=== PATIENT | male | born 1955 | race Caucasian/White ===

== ENCOUNTER → 2020-06-20 12:34 | Outpatient (BNVA) | payer MEDICARE, OTHER, SELFPAY | PROVIDERS: PCP Internal Medicine; Visit Provider Orthopaedic Surgery | DX: Z20.828 Contact with and (suspected) exposure to other viral communicable diseases (principal); Z01.812 Encounter for preprocedural laboratory examination | CPT/HCPCS: 87635 ==

== ENCOUNTER 2020-06-25 13:18 | Observation (INO) | payer MEDICARE, OTHER, SELFPAY ==
[2020-06-15 08:31] VITALS: BMI 33.0
--- NOTE | 2020-06-15 08:55 | ECG_ITS ---
[facility] Test Date: 2020-06-15 Pat Name: Tiago Petersen Department: Room: Gender: Male Test Director: : 1955 Requested By: Chanell Bernardo Order Number: [id number] Jamie MD: PARVEEN TORRES Measurements Intervals [place] Rate: 47 P: 66 OK: 226 QRS: 16 QRSD: 116 T: 28 QT: 430 QTc: 380 Interpretive Statements SINUS BRADYCARDIA WITH FIRST DEGREE AV BLOCK WITH OCCASIONAL VENTRICULAR PREMATURE COMPLEXES INCOMPLETE RIGHT BUNDLE BRANCH BLOCK [90+ ms QRS DURATION, TERMINAL R IN V1/V2, 40+ ms S IN I/aVL/V4/V5/V6] No previous ECG available for comparison Electronically Signed On 06-15-2020 19:32:58 SALES DEPARTMENT CLERK by PARVEEN TORRES [id number]
--- NOTE | 2020-06-15 08:56 | ANES.PREANE2 ---
Pre-Anesthetic Assessment Pre-Anesthetic Assessment: Height/Weight: Height 1.78 m Weight 104.326 kg Preop Diagnosis: Arthritis Proposed Procedure: Operation Date: 06/25/20 09:40 Proposed Procedures p Total Knee Arthroplasty 01506 M17.11(Left) - Naveen Brown MD Familial anesthetic complications: NOne Social: Social History: No alcohol and No tobacco Exam: Pre-Anes Outpt Exam: alert, oriented x 3, clear to auscultation bilaterally and regular rate & rhythm Airway: Cervical ROM: WNL MP: 2 Dentition: False Pulmonary: Pulmonary: Sleep apnea (cpap) : Comments: can't take ibuprofen or aleve b/c affects kidneys. uroSepsis in 2014 caused kidneys damage Musc/skel: Musc/skel: OA/DJD Anesthetic Plan: ASA status: 3 Anesthesia: Regional (specify below) (spinal) Risk of > 500 ml blood loss (7ml/kg in children): No PFSH Anesthesia PFSH: Family History (Updated 06/15/20 @ 08:38 by Nely Mae RN) Brother Heart attack Stroke Social History Smoking and tobacco status: former smoker Alcohol intake: never Data Anesthesia Cardiac Studies: No Data to Display
[2020-06-15 09:18] LABS: Basophils # 0.1 10^3/uL (0.0-0.1); Eosinophils # 0.1 10^3/uL (0.0-0.8); Eosinophils % 1.9 %; Hematocrit 51.1 % (42.0-52.0); Hemoglobin 16.4 g/dL (11.7-16.6); Lymphocytes # 1.6 10^3/uL (0.8-4.8); Lymphocytes % 32.8 %; Mean Corpuscular HGB Conc 32.1 g/dL (30.0-36.0); Mean Corpuscular Hemoglobin 29.9 pg (28.0-34.0); Mean Corpuscular Volume 93.1 fL (80-94); Mean Platelet Volume 8.9 fL (7.4-10.4); Monocytes # 0.5 10^3/uL (0.2-0.9); Monocytes % 10.5 %; Neutrophils # 2.56 10^3/uL (1.8-7.7); Neutrophils % 53.6 %; Nucleated Red Blood Cells % 0 %; Platelet Count 238 10^3/cmm (130-400); Red Blood Count 5.49 10^6/uL (4.1-5.3); Red Cell Distribution Width 13.6 % (12.1-15.1); White Blood Count 4.8 10^3/uL (4.0-10.0)
[2020-06-15 09:36] LABS: Anion Gap 15.6 (5-19); Blood Urea Nitrogen 17 mg/dL (8-23); Calcium 9.2 mg/dL (8.5-10.5); Carbon Dioxide 23 mmol/L (22-29); Chloride 105 mmol/L (98-107); Glucose 121 mg/dL (65-115); Osmolality Calculated 291 mOsm/kg (285-295); Potassium 4.6 mmol/L (3.5-5.1); Sodium 139 mmol/L (136-145)
[2020-06-25] VITALS (42 sets, daily range): BP systolic 94–134; BP diastolic 23–75; PULSE 31–69; RESP 13–33; TEMP 36.3–36.8; O2SAT 90–98
[2020-06-25] MEDS: gabapentin 300 mg Capsule PO ×2 (06:10→17:17)
[2020-06-25] MEDS: acetaminophen 500 mg Tablet 1000 MG PO ×3 (06:10→22:15)
[2020-06-25] MEDS: CELEcoxib 200 mg Capsule 400 MG PO (06:10)
[2020-06-25] MEDS: sodium chloride 0.9% 1,000 ML 30 ML IV (06:13)
[2020-06-25] MEDS: midazolam 1 mg/mL INJ 5 ML 5 MG IVP (06:31)
--- NOTE | 2020-06-25 06:38 | P.ANESUD_ITS ---
Pre-Anesthetic Update Pre-Anesthetic Assessment: Date of Surgery/Procedure: 06/25/20 Preop Val gnosis: Osteoarthritis left knee Proposed Procedure: Operation Date: 06/25/20 07:00 Proposed Procedures p Total Knee Arthroplasty 01175 M17.11(Left) - Naveen Brown MD Any changes to Pre-Anesthetic Assessment?: No Last Intake: Intake Last Liquid Date 06/24/20 Last Liquid Time 19:00 Last Solid Date 06/24/20 Last Solid Time 19:00 Vitals: Temperature 97.3 F L 06/25/20 05:39 Temperature Source Temporal Artery S can 06/25/20 05:39 Pulse Rate 45 L 06/25/20 05:39 Pulse Rhythm 06/25/20 05:39 Pulse Strength 3+ Normal 06/25/20 05:39 Respiratory Rate 18 06/25/20 05:39 Blood Pressure 119/71 06/25/20 05:39 Blood Pressure Kathrine n 87 06/25/20 05:39 Pulse Oximetry 95 06/25/20 05:39 Oxygen Delivery Me thod 06/25/20 05:39 Exam: Pre-Anes Outpt Exam: alert, oriented x 3, clear to auscultation bilaterally and regular rate & rhythm Cardiac Studies: No Data to Display
--- NOTE | 2020-06-25 06:39 | ANES.PROC ---
Anesthesia Procedures Procedure/Date: 06/25/20 Nerve Block ^: Nerve Block 1: Main Anesthesia: general anesthesia Time Out Performed: Yes Consent: requested by attending/covering physician, from patient, from other, risks and benefits reviewed, patient agrees to proceed and emergency procedure Nerve block location: adductor canal (L) Anesthesia monitors applied: pulse oximetry, EKG, BP cuff and oxygen Nerve block position: supine Anesthetic Used: ropivicaine 0.5% (30) and with decadron (4 mg) Amount of anesthesia used (mL): 30 Ultrasound used to: recognize landmarks and visualize and ID femerol nerve Nerve Stimulator Used?: No Interscalene/Femoral BLK: 4 stimuplex 21 g needle used for position and inplane approach, other needle, visualize local anesthetic spread and no vascular puncture identified Injection: neg aspiration of heme Patient Tolerated Procedure: well and no complications Complications: none
[2020-06-25] MEDS: oxyCODONE 20 mg ER (12 HR) Tablet PO (06:42)
--- NOTE | 2020-06-25 07:03 | W.PM.OPSFHP ---
Same Day Surgery H&P Indication for Procedure/HPI DATE OF PROCEDURE: June 25, 2020 CHIEF COMPLAINT/INDICATIONFOR SURGICAL PROCEDURE: Osteoarthrits left knee with pain unresponsive to conservative measures. Here for left total knee arthroplasty PREOP DIAGNOSIS: Osteoarthritis left knee PLANNED PROCEDRUE: Operation Date: 06/25/20 07:00 Proposed Procedures p Total Knee Arthroplasty 30178 M17.11(Left) - Naveen Brown MD Medications/Allergies* Home Medications Medication Instructions Recorded Confirmed Type tamsulosin 0.4 mg capsule 0.4 mg PO DAILY 01/06/20 06/25/20 History acetaminophen [Tylenol Arthritis 650 mg PO Q12H PRN 06/15/20 06/25/20 History Pain] hydrocodone-acetaminophen 1 - 2 tab PO Q4-5H PRN 06/15/20 06/25/20 History Allergies/Adverse Reactions Allergy/AdvReac Type Severity Reaction Status Date / Time No Known Allergies Allergy Verified 06/15/20 08:27 Current Medications: Generic Name Dose Route Start Last Admin Trade Name Freq PRN Reason Stop Dose Admin Sodium Chloride 1,000 mls @ 30 mls/hr 06/25/20 05:45 06/25/20 06:13 Sodium Chloride 0.9% IV 06/26/20 05:44 30 mls/hr .Q24H ZOILA Administration Pertinent History/Comorbid Conditions* Family History Heart attack Brother Stroke Brother Social History Smoking and tobacco status: former smoker Alcohol intake: never Pertinent Exam Findings alert, oriented x 3, clear to auscultation bilaterally, regular rate & rhythm, operative site marked and procedure specific exam findings (Unchanged from clinic note) Recommendations Surgery/Procedure today Coding Level of Care Code Acute Senior Technical Analyst for Domonique Eubanks
--- NOTE | 2020-06-25 08:03 | SUR.OPER ---
0800 - Pt's Ashley notified of surgery start via her cell phone.
[2020-06-25] MEDS: ketorolac 30 mg/mL INJ XX (08:40)
[2020-06-25] MEDS: EPINEPHrine 1 mg/mL INJ XX (08:40)
[2020-06-25] MEDS: tranexamic acid 1,000 mg/10mL SDV 1000 MG IRRIGATION (08:42)
--- NOTE | 2020-06-25 09:16 | W.PM.OPSUD ---
Surgery/Procedure H&P Update DATE OF PROCEDURE: June 25, 2020 DATE H&P PERFORMED: 04/03/20 PREOP DIAGNOSIS: Osteoarthritis left knee PLANNED PROCEDURE: Operation Date: 06/25/20 07:00 Proposed Procedures p Total Knee Arthroplasty 81036 M17.11(Left) - Naveen Brown MD
--- NOTE | 2020-06-25 09:18 | P.OP_ITS ---
Operative Report Date of procedure: June 25, 2020 Pre-op Diagnosis: Osteoarthritis left knee Post-op diagnosis: same Post-op Findings: Same Procedure Done: Left total knee arthroplasty Implants: Dalton total knee arthroplasty components were used includin) Size 4 triathalon cruciate retaining femoral component 2) Size 5 Tritanium tibial component 3) 32 mm /10 mm thickness Tritanium asymetric patella 4) Size 5/9 mm thickness CR tibial bearing insert Pathology: none sent Surgeon: Naveen Brown Anesthesia: Nerve Block (Spinal, abductor canal block) Estimated blood loss (mL): 100 Complications: None Findings: The patient had 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 Patient was given 1 g of tranexamic acid . The above anesthesia provided by the anesthesia service. A timeout was performed. The patient was prepped and draped in the usual fashion with the lower extremity exposed. A anterior incision was made, midline, from a point proximal to the patella to the distal tibial tubercle. The knee was entered through a medial parapatellar approach. The patella could be displaced laterally and the knee flexed. The patellar fat pad was resected to provide better visibility. Retractors were placed medially and laterally adjacent to the tibial plateau. The femoral canal was drilled in line with the longitudinal axis of the femur. Intramedullary femoral guide for used to make a distal femoral cut in 5 degrees of valgus, resecting 8 mm from the more prominent condyle. Next the extra medullary tibial guide was placed in alignment with the longitudinal axis of the tibia. The cutting guides were set to remove just over 9 mm from the high tibial plateau. The proximal tibia was then cut. The femoral measuring guide was then placed over the distal femur. Rotation was verified checking the re lationship of the guide to the condyle and the trochlear groove. The femur was measured and cut for the desired femoral component. The desired tibial baseplate was then chosen. A trial reduction with the femur tibial baseplate and polyethylene was done, assuring that the knee was stable throughout full motion. Ligament balancing involve nothing more than a release of the deep medial collateral ligament and removal of medial osteophytes from the tibia.The tibia was prepared for the tibial baseplate. Patellar thickness was then measured. The patella was cut removing articular cartilage and prepared for appropriate size patellar button. All surfaces were cleaned with pulsatile lavage. The femur tibia and patella were then press-fit into place. The posterior capsule and collateral ligaments were then injected with a solution of 100 mL of 0.2% ropivacaine, 1 mL of a 1:1000 epinephrine solution, and 30 mg of Toradol. Final polyethylene component was then snapped into place into the tibia. 2 grams of tranexamic acid were applied to the wound. The tourniquet was deflated. The tranxanemic acid was left contact with the knee for 5 minutes before the knee was irrigated with saline. The extensor retinaculum was closed with 1 Ethibond. The subcutaneous tissues were closed with 2-0 Vicryl and the skin was closed with skin tatyana. A compressive dressing was applied. The patient was taken to recovery room in stable condition.
--- NOTE | 2020-06-25 09:33 | XR_ITS ---
WS: [id number] Exam: XR knee LT 1-2V [id number] Date/Time of Exam: 06/25/2020 9:38 AM Reason For Exam: Left total knee arthroplasty Comparison 04/29/2019. A total knee prosthesis has been placed and appears to be in excellent position. Postoperative change s in the adjacent soft tissues. Anterior surgical skin clips are noted. XR/XR knee LT 1-2V [id number] IMPRESSION: 1. Total knee replacement appearing to be in excellent position.
--- NOTE | 2020-06-25 09:37 | SUR.PHASEI ---
PT AWAKE ALERT FOLLOWS COMMANDS, GOOD RESP EFFOR NOTED PT NOW ON2LNC TO KEEP SATS OVER 94% PT SLEEPS IF NOT DISTURBED X RAY HERE, DRESSING LT KNEE D/I FIRST ICE TO SITE, DISTAL FOOT PINK WARM WITH STRONG REGULAR PULSE NOTED SPINAL ANESTHESIA LEVEL AT T -10 LEVEL PT PT VOICED NORMAL SENSATION. HOB AT 10 DEGREES.
--- NOTE | 2020-06-25 11:03 | SUR.PHASEI ---
1045 PT AWAKE ALERT PT HAS EPISODES OF SLOW SB NO ECTOPY NOTED PT HAD LEFT KNEE DRESSING D/I PT TALKATIVE SPINAL ANESTHESIA AT T-10 ON PACU ADMIT NOW T 12 PT ABLE TO MOVE BILAT FEET AND KNEES, PT DENIES PAIN TAKING SIPS OF SODA, PT NOW IN HOLDING , WAITING FOR BED. VSS.
--- NOTE | 2020-06-25 11:05 | SUR.PHASEI ---
PT AWAKE ALERT MOVES BILAT LEGS AND FEET TO COMMAND, PT DENIES PAIN HOB AT 20 DEGREES PT SLEEPS IF NOT DISTURBED ON 2LNC SATS 93-94% DRESSING TO LT KNEE D/I DISTAL FOOT PINK WARM WITH STRONG REGULAR PULSE NOTED PT HR STILL FLUCTUATES FROM 35-47
--- NOTE | 2020-06-25 13:12 | ECG_ITS ---
[facility] Test Date: 2020-06-25 Pat Name: Tiago Petersen Department: Room: 275 Gender: Male Sandwich Maker: : 1955 Requested By: Chanell Bernardo Order Number: [id number] Jamie MD: Jorge Paredes M.D. Measurements Intervals [place] Rate: 58 P: 87 WI: 258 QRS: 38 QRSD: 122 T: 37 QT: 448 QTc: 440 Interpretive Statements SINUS BRADYCARDIA WITH MARKED SINUS ARRHYTHMIA WITH FIRST DEGREE AV BLOCK RIGHT BUNDLE BRANCH BLOCK [120+ ms QRS DURATION, UPRIGHT V1, 40+ ms S IN I/aVL/V4/V5/V6] Compared to ECG 06/15/2020 09:03:19 Right bundle-branch block now present Incomplete right bundle-branch block no longer present Electronically Signed On 06-25-2020 18:26:31 PROCUREMENT DIRECTOR by Jorge Paredes M.D. [email or web address] [email or web address]/[id number] f
--- NOTE | 2020-06-25 13:17 | SUR.PHASEI ---
EKG DONE AT BEDSIDE PT AWAKE ALERT TALKING ON PHONE HR REMAINS 32-50 SB WITH OCC EARLY BEATS NO ECTOPY NOTED.
[2020-06-25] MEDS: oxyCODONE 5 mg IR Tab/Cap PO ×2 (13:26→17:44)
--- NOTE | 2020-06-25 13:41 | PC.NURSE ---
Received patient from surgery, resting in bed, denies pain, dressing to left leg clean dry and intact. vitals stable as charted.
--- NOTE | 2020-06-25 14:10 | ANE.PACU2 ---
Inpatient post-anesthesia follow up: Airway intact: Yes Vital signs: Temperature 97.8 F Pulse Rate 47 Respiratory Rate 18 Blood Pressure 116/54 Pulse Oximetry 97 Oxygen Delivery Me thod Nasal Cannula Oxygen Flow Rate 2 Fraction of Inspir ed Oxygen Hydration adequate: Yes Nausea and vomiting: No Pain level: 2 Mental status: Baseline Additional Comments: patient's heart rate continues to be slow and irregular with some pauses, but with P waves. Remains asymptomatic. Spinal worn off, patient able to move both lower extremities.
[2020-06-25] MEDS: chlorhexidine gluconate 0.12% Btl 473 mL 30 ML MUCOUS MEM ×3 (14:25→22:14)
[2020-06-25] MEDS: sodium chloride 0.9% 1,000 ML 100 ML IV (14:26)
--- NOTE | 2020-06-25 14:33 | PC.NURSE ---
Physical therapy in room with patient.
--- NOTE | 2020-06-25 15:36 | PM.PN ---
Subjective Subjective: Interval history: Feels good. Up ambulting with therapy earlier Vitals/I&O/Wt Last Vital Signs Temp 98.2 F 06/25/20 14:16 Pulse 56 L 06/25/20 14:16 Resp 15 06/25/20 14:16 BP 134/75 06/25/20 14:16 Pulse Ox 94 06/25/20 14:16 06/25/20 06/25/20 06/25/20 06:59 14:59 22:59 Intake Total 760 / 760 Output Total 150 / 150 Balance 610 / 610 Physical Exam Narrative: EXAM NARRATIVE: Performs straight leg raise Dressing clean and dry Urinary Catheter Management^: Phillips: Cath Placed During This Visit: yes Urinary Catheter Date of Insertion: 06/25/20 Urinary Catheter Time of Insertion: 07:35 Data : 06/15/20 09:00 06/15/20 09:00 A&P Assessment and plan (1) Osteoarthritis of left knee: Status: Resolved (2) Status post left knee replacement: Doing well. Anticipate discharge in am. Status: Acute (3) AV block, 1st degree: Patient asymptomatic. Will ask for hospitalists input Status: Acute Attestations Medical Necessity Statement*: Outpatient status. Anticpate discharge tomorow. Coding Level of Care Code Acute Financial Analyst for Domonique Fwfreeman Diagnoses Osteoarthritis of left knee M17.12 Status post left knee replacement Z96.652 AV block, 1st degree I44.0
--- NOTE | 2020-06-25 15:58 | USCV_ITS ---
Tiago Petersen Age: 64 Gender: M : 1955 Exam Date: 06/25/2020 15:56 Ordering Phys: Champ Burrows MD Technologist: Konrad Cowan Exam Location: [facility] [place] Indication: sinus bradicardia BP: 132 / 74 HR: 45 Rhythm: Sinus Technical Quality: Adequate MEASUREMENTS (Male / Female) Normal Values 2D ECHO LV Diastolic Diameter PLAX 3.7 cm 4.2 - 5.9 / 3.9 - 5.3 cm LV Systolic Diameter PLAX 2.3 cm IVS Diastolic Thickness 1.2 cm 0.6 - 1.0 / 0.6 - 0.9 cm IVS Systolic Thickness 1.6 cm LVPW Diastolic Thickness 1.3 cm 0.6 - 1.0 / 0.6 - 0.9 cm LVPW Systolic Thickness 1.4 cm LVOT Diameter 2.0 cm LV Ejection Fraction 2D Teich 67.6 % LV Ejection Fraction MOD 2C 58.5 % LV Ejection Fraction 2C AL 58.8 % LA Diameter 4.4 cm LA Width 4.5 cm LA Height 5.1 cm RA Width 4.3 cm RA Height 4.8 cm Aorta at Sinotubular Diameter 2.8 cm M-MODE LV Diastolic Diameter MM 5.2 cm 4.2 - 5.9 / 3.9 - 5.3 cm LV Systolic Diameter MM 2.8 cm LV Ejection Fraction MM Teich 76.3 % IVS Diastolic Thickness MM 1.0 cm 0.6 - 1.0 / 0.6 - 0.9 cm IVS Systolic Thickness MM 1.4 cm LVPW Diastolic Thickness MM 1.2 cm 0.6 - 1.0 / 0.6 - 0.9 cm LVPW Systolic Thickness MM 1.8 cm RV Diastolic Diameter MM 1.7 cm Aortic Annulus Diameter 4.3 cm LA Ao Ratio MM 1.2 MV E Point Septal Separation 0.9 cm DOPPLER AV Peak Velocity 199.0 cm/s LVOT Peak Velocity 111.0 cm/s AV Area Cont Eq vti 1.6 cm squared AV Area Cont Eq pk 1.8 cm squared MV Area PHT 5.0 cm squared Mitral E to A Ratio 1.0 MV E' Velocity 43.0 cm/s Mitral E to MV E' Ratio 6.6 Mitral E to LV E' Lateral Ratio 6.3 Mitral E to LV E' Septal Ratio 7.0 TR Peak Velocity 192.0 cm/s TR Peak Gradient 14.7 mmHg TV Peak E Velocity 113.0 cm/s Right Atrial Pressure 3.0 mmHg Pulmonary Artery Systolic Pressu 17.7 mmHg FINDINGS Left Ventricle Normal left ventricular size, systolic function and wall thickness, with no regional wall motion abnormalities. Left ventricular ejection fraction is estimated at 70 %. Normal diastolic function. Right Ventricle Normal right ventricular size and systolic function, RVSP 17.7 mmHg. Right Atrium Normal right atrial size. Left Atrium Normal left atrial size. Mitral Valve Structurally normal mitral valve. No mitral valve stenosis. No mitral valve regurgitation. Aortic Valve Aortic valve not well visualized. No aortic valve stenosis. No aortic valve regurgitation. Tricuspid Valve Tricuspid valve not well visualized. Pulmonic Valve Pulmonic valve not well visualized. Pericardium No pericardial effusion. Aorta Normal-sized aortic root. CONCLUSIONS 1. This is a technically difficult study. 2. Normal left ventricular size, systolic function and wall thickness, with no regional wall motion abnormalities. Left ventricular ejection fraction is estimated at 70 %. Normal diastolic function. 3. Normal pulmonary artery pressure. 4. No significant valvular abnormality. 5. Normal-sized aortic root. 6. No prior similar studies to compare. Carmen Lopez MD (Electronically Signed) Final Date: 25 June 2020 19:10 S
--- NOTE | 2020-06-25 15:58 | PM.CONSULT ---
Providers/Reason For Consult Consulting Physican/Specialty*: Orthopedic Reason for Consult*: Sinus bradycardia Attending Physician: Naveen Brown MD Primary Care Provider: Tiago Sung DO History of Present Illness History of Present Illness Tiago Petersen is a 64 year old male with a past medical history of diverticulitis, BPH, who presents to [facility] status post left knee replacement by Dr. Brown. Hospitalist team was consulted for concerns for sinus bradycardia. Patient had episodes of sinus bradycardia in the operating room, and sinus bradycardia postop. Patient tells me that he does not have a cardiac history, no history of chest pain, no history of shortness of breath, no history of syncope, no history of CHF, no history of stenting, no history of open heart surgery, no history of COPD, no history of strokes, he quit smoking more than 6 years ago. Patient states that he is retired, but he is very active with his dogs, denies any chest pain with exertion, denies any shortness of breath with exertion, denies any lightheadedness or dizziness with exertion, denies any presyncope, denies any syncope. He tells me that when he had his cataract surgery, he also had issues with low heart rate. Currently denies chest pain, shortness of breath, lightheadedness, dizziness, presyncope, syncope. Does have a family history of CAD, his brother from CAD in his 50s. Denies alcohol use. Denies drug use. Review of Systems Const: Denies: fever(s), chills, fatigue or malaise Eyes: Denies: change in vision or blurry vision ENMT: Denies: nasal congestion Card: Denies: chest pain, palpitations, irregular heart rhythm, edema, syncope or pre-syncope Resp: Denies: dyspnea, productive cough, non-productive cough or wheezing GI: Denies: abdominal pain, nausea, vomiting, hematemesis, diarrhea, constipation, hematochezia or melena : Denies: flank pain, difficulty urinating, dysuria or urinary frequency Musc: Denies: neck pain or back pain Skin/Breast: Denies: rash Neuro: Denies: headache(s), dizziness or vertigo Psych: Denies: anxiety or depression Endo: Denies: polyuria or polydipsia Meds/Allergies Home Medications and Allergies Home Medications Medication Instructions Recorded Confirmed Last Taken Type tamsulosin 0.4 mg capsule 0.4 mg PO DAILY 01/06/20 06/25/20 06/25/20 History acetaminophen [Tylenol Arthritis 650 mg PO Q12H PRN 06/15/20 06/25/20 06/25/20 History Pain] hydrocodone-acetaminophen 1 - 2 tab PO Q4-5H PRN 06/15/20 06/25/20 06/25/20 History Allergies Allergy/AdvReac Type Severity Reaction Status Date / Time No Known Allergies Allergy Verified 06/15/20 08:27 Current Medications Current Medications Generic Name Dose Route Start Last Admin Trade Name Freq PRN Reason Stop Dose Admin Acetaminophen 1,000 mg 06/25/20 14:00 06/25/20 14:24 Acetaminophen 500 Mg Tablet PO 1,000 mg Q8H ZOILA Administration Chlorhexidine Gluconate 30 ml 06/25/20 13:41 06/25/20 14:25 Chlorhexidine Gluconate 0.12% Btl 473 Ml MUCOUS MEM 30 ml QID ZOILA Administration Sodium Chloride 1,000 mls @ 100 mls/hr 06/25/20 13:41 06/25/20 14:26 Sodium Chloride 0.9% IV 100 mls/hr .Q10H ZOILA Administration Cefazolin Sodium 2,000 mg/ 70 mls @ 100 mls/hr 06/25/20 15:00 06/25/20 15:44 Sodium Chloride IV 06/26/20 07:41 100 mls/hr Q8H ZOILA Administration PFSH Acute PFSH: Medical History (Updated 06/25/20 @ 16:03 by Champ Burrows MD) BPH (benign prostatic hyperplasia) Diverticulitis Surgical History (Updated 06/25/20 @ 16:02 by Champ Burrows MD) History of bilateral cataract extraction History of carpal tunnel surgery Family History (Updated 06/15/20 @ 08:38 by Nely Mae RN) Brother Heart attack Stroke Mother Liver cancer Social History Smoking and tobacco status: former smoker Alcohol intake: never Vitals/I&O/Wt Last Vital Signs Temp 97.5 F L 06/25/20 15:30 Pulse 58 L 06/25/20 15:46 Resp 16 06/25/20 15:35 BP 117/72 06/25/20 15:30 Pulse Ox 97 06/25/20 15:46 06/25/20 06/25/20 06/25/20 06:59 14:59 22:59 Intake Total 760 / 760 Output Total 150 / 150 Balance 610 / 610 Physical Exam Const: COMMON NORMALS: no acute distress and patient oriented x3 GENERAL APPEARANCE: cooperative and comfortable HENMT: COMMON NORMALS: normocephalic HEAD & SCALP: normocephalic Eye: COMMON NORMALS: Equal, round and reactive pupils present and EOMs intact bilaterally GENERAL EYE: appearance normal, both eyes and all related structures PUPIL: Yes Equal, round and reactive pupils present Neck/C-Spine: COMMON NORMALS: full ROM, no lymphadenopathy, no JVD and Thyroid normal THYROID: Thyroid normal Lymph: LYMPHATIC: no lymphadenopathy noted Resp: COMMON NORMALS: normal respiratory effort, No retractions, No use of accessory muscles and clear to auscultation bilaterally AUSCULTATION: clear to auscultation bilaterally Cardio: COMMON NORMALS: no JVD, regular rhythm, S1 normal heart sound present, S2 normal heart sound present, No gallops present (Cardio), No clicks present (Cardio) and No murmurs present (Cardio) RATE: bradycardic RHYTHM: regular rhythm HEART SOUNDS: S1 normal heart sound present and S2 normal heart sound present GI: COMMON NORMALS: Normal to inspection, nondistended, normoactive bowel sounds present, Soft to palpation, non-tender and No hepatosplenomegaly present PALPATION: Yes Soft to palpation and Yes No hepatosplenomegaly present Extremity: COMMON NORMALS: normal to inspection, full ROM and no pedal edema Neuro: COMMON NORMALS: patient oriented x3, CN's II-XII intact bilaterally, moves all extremities and no focal motor deficits Psych: COMMON NORMALS: mental status grossly normal, Normal thought process present and cooperative THOUGHT PROCESS: Normal thought process present Urinary Catheter Management^: Phillips: Cath Placed During This Visit: yes Urinary Catheter Date of Insertion: 06/25/20 Urinary Catheter Time of Insertion: 07:35 A&P Assessment and plan (1) Sinus bradycardia: -Preop EKG shows sinus bradycardia, with first-degree AV block, some incomplete RBBB, rate 47, UT interval 227 ms, QRS 116 ms, QTC 380 ms -Postoperative EKG shows sinus bradycardia, first-degree AV block, incomplete RBBB, heart rate 50, UT interval 258 ms, QRS 122 ms, QTC 440 ms -Review of patient's previous hospitalizations, show that during his hospitalization for perforated diverticulitis, his telemetry monitoring did show sinus bradycardia, with first-degree AV block, this was back in 2015 -He tells me that he has a history of sinus bradycardia after anesthesia for his cataract surgery -No cardiac history, no history of syncope, no chest pain with exertion, no syncope with exertion -No history of stress testing, no history of chest pain -Currently asymptomatic Plan: -Continue telemetry monitoring -Avoid marion blocking agents -He will likely develop more sinus bradycardia during sleep, continue to monitor -We will order cardiac echocardiogram -Currently asymptomatic, would avoid treating -If he becomes symptomatic, will give atropine 0.5 mg every 5 minutes -patient should follow-up with cardiology as outpatient -I do not feel that he would benefit from Holter monitor, as he is not symptomatic he does perform become symptomatic we can consider this Status: Acute (2) AV block, 1st degree: Status: Acute (3) Status post left knee replacement: Status: Acute (4) Osteoarthritis of left knee: Status: Resolved Coding Level of Care Code Acute Cloth Napping Supervisor for lexis Eubanks Diagnoses Sinus bradycardia R00.1 AV block, 1st degree I44.0 Status post left knee replacement Z96.652 Osteoarthritis of left knee M17.12
[2020-06-25] MEDS: sennosides-docusate Tablet 2 TAB PO (17:17)
[2020-06-25] MEDS: CELEcoxib 200 mg Capsule PO (17:17)
[2020-06-25] MEDS: mupirocin oint 22 gm 1 APPLIC NASAL (17:17)
[2020-06-26] MEDS: sodium chloride 0.9% 1,000 ML 100 ML IV (01:42)
[2020-06-26 05:02] LABS: Hemoglobin 13.6 g/dL (11.7-16.6)
[2020-06-26 05:34] LABS: Blood Urea Nitrogen 30 mg/dL (8-23); Calcium 8.5 mg/dL (8.5-10.5); Carbon Dioxide 21 mmol/L (22-29); Chloride 109 mmol/L (98-107); Glomerular Filtration Rate 55.4 mL/min (90-130); Glucose 136 mg/dL (65-115); Osmolality Calculated 298 mOsm/kg (285-295); Sodium 140 mmol/L (136-145)
[2020-06-26 05:42] LABS: Anion Gap 14.8 (5-19); Potassium 4.8 mmol/L (3.5-5.1)
[2020-06-26] MEDS: acetaminophen 500 mg Tablet 1000 MG PO (06:28)
[2020-06-26] MEDS: CELEcoxib 200 mg Capsule PO (06:29)
[2020-06-26 07:11] VITALS: BP 115/62; PULSE 60; RESP 16; TEMP 36.6; O2SAT 92
--- NOTE | 2020-06-26 09:15 | P.PN_ITS ---
Subjective Subjective: Interval history: Patient was examined this morning, he had uneventful night, yesterday afternoon his heart rates were in the low 30s, overnight his heart rates were in the 40s, this morning he sitting up in bed, heart rates in the 50s to 60s, he was asymptomatic, no chest pain, no presyncope, no lightheaded, dizziness, no nausea, vomiting, he has no particular complaints, wondering when he can go home Vitals/I&O/Wt Last Vital Signs Temp 97.8 F 06/26/20 07:11 Pulse 60 06/26/20 07:11 Resp 16 06/26/20 07:11 BP 115/62 06/26/20 07:11 Pulse Ox 92 06/26/20 07:11 06/25/20 06/26/20 06/26/20 22:59 06:59 14:59 Intake Total 620 / 1380 1000 / 2380 240 / 240 Output Total 275 / 425 250 / 675 Balance 345 / 955 750 / 1705 240 / 240 Physical Exam Const: COMMON NORMALS: no acute distress and patient oriented x3 HENMT: COMMON NORMALS: normocephalic HEAD & SCALP: normocephalic Neck/C-Spine: COMMON NORMALS: no JVD Resp: COMMON NORMALS: normal respiratory effort, No retractions, No use of accessory muscles and clear to auscultation bilaterally AUSCULTATION: clear to auscultation bilaterally Cardio: COMMON NORMALS: no JVD, regular rhythm, S1 normal heart sound present and S2 normal heart sound present RATE: bradycardic RHYTHM: regular rhythm HEART SOUNDS: S1 normal heart sound present and S2 normal heart sound present GI: COMMON NORMALS: Normal to inspection, nondistended, normoactive bowel sounds present, Soft to palpation, non-tender, No hepatosplenomegaly present, no masses and no bruits PALPATION: Yes Soft to palpation and Yes No he patosplenomegaly present Extremity: COMMON NORMALS: capillary refill normal, no clubbing, cyanosis or edema, no calf tenderness and no pedal edema Neuro: COMMON NORMALS: patient oriented x3 Psych: COMMON NORMALS: mental status grossly normal Urinary Catheter Management^: Phillips: Cath Placed During This Visit: yes Urinary Catheter Date of Insertion: 06/25/20 Urinary Catheter Time of Insertion: 07:35 Data : 06/26/20 03:23 06/26/20 03:23 A&P Assessment and plan (1) Sinus bradycardia: -Preop EKG shows sinus bradycardia, with first-degree AV block, some incomplete RBBB, rate 47, CT interval 227 ms, QRS 116 ms, QTC 380 ms -Postoperative EKG shows sinus bradycardia, first-degree AV block, incomplete RBBB, heart rate 50, CT interval 258 ms, QRS 122 ms, QTC 440 ms -Does have evidence of interventricular conduction delay -Review of patient's previous hospitalizations, show that during his hospitalization for perforated diverticulitis, his telemetry monitoring did show sinus bradycardia, with first-degree AV block, this was back in 2014 -He tells me that he has a history of sinus bradycardia after anesthesia for his cataract surgery -No cardiac history, no history of syncope, no chest pain with exertion, no syncope with exertion -No history of stress testing, no history of chest pain -Currently asymptomatic -Heart rates 30s yesterday afternoon, 40s overnight, 50s this morning when alert and awake, asymptomatic, doing well Plan: -Avoid marion blocking agents -Cardiac echocardiogram shows an EF of 70% -Currently asymptomatic, would avoid treating -I spoke to cardiology, Dr. Leo, given his evidence of interventricular conduction delay, and sinus bradycardia, patient would benefit from a event monitor, which Dr. Leo will follow, follow-up with Dr. Leo in 2 to 4 weeks, -Patient was advised that if he were to feel lightheaded, dizzy, chest pain, shortness of breath, presyncope or syncope go immediately to the emergency room or call 911 Status: Acute (2) AV block, 1st degree: Status: Acute (3) Status post left knee replacement: Status: Acute (4) Osteoarthritis of left knee: Status: Resolved Attestations Medical Necessity Statement*: Patient requires hospitalization for left knee total arthroplasty, sinus bradycardia, likely will discharge today Coding Level of Care Code Acute Sandblasting Supervisor for Domonique Eubanks Diagnoses Sinus bradycardia R00.1 AV block, 1st degree I44.0 Status post left knee replacement Z96.652 Osteoarthritis of left knee M17.12
[2020-06-26] MEDS: chlorhexidine gluconate 0.12% Btl 473 mL 30 ML MUCOUS MEM (10:13)
[2020-06-26] MEDS: gabapentin 300 mg Capsule PO (10:14)
[2020-06-26] MEDS: tamsulosin 0.4 mg Capsule PO (10:14)
[2020-06-26] MEDS: aspirin 325 mg EC Tablet PO (10:15)
[2020-06-26] MEDS: mupirocin oint 22 gm 1 APPLIC NASAL (10:16)
--- NOTE | 2020-06-26 10:31 | ANE.PACU2 ---
Inpatient post-anesthesia follow up: Airway intact: Yes Vital signs: Temperature 97.8 F Pulse Rate 60 Respiratory Rate 16 Blood Pressure 115/62 Pulse Oximetry 92 Oxygen Delivery Me thod Room Air Oxygen Flow Rate 1 Fraction of Inspir ed Oxygen Hydration adequate: Yes Nausea and vomiting: No Pain level: 2 Mental status: Baseline Additional Comments: spinal worn off, block worked well
[2020-06-26 11:07] VITALS: BP 107/66; PULSE 43; RESP 18; TEMP 36.4; O2SAT 94
--- NOTE | 2020-06-26 11:33 | PC.OT ---
OT screening performed. Pt demonstrates/verbalizes independence in ADL tasks. Pt has no questions. No further skilled OT needed. Co-sign: MAXIME Arshad/L
--- NOTE | 2020-06-26 12:09 | P.DS_ITS ---
Discharge Providers Date of Admission: 06/25/20 13:18 Date of Discharge: June 26, 2020 Attending Provider at Admission: Naveen Brown MD Attending Provider at Discharge: Naveen Brown MD Primary Care Provider: Tiago Sung DO Diagnoses at Discharge Discharge Diagnosis (1) Sinus bradycardia: Status: Acute (2) AV block, 1st degree: Status: Acute (3) Status post left knee replacement: Status: Acute (4) Osteoarthritis of left knee: Status: Resolved Reason for Visit Reason for Visit: left total knee arthoplasty Hospital Course Hospital Course The patient was admitted after elective left total knee arthroplasty. He remained hemodynamically stable throughout his hospitalization. His pain was controlled with oral medications. By the first postoperative day he was up with therapy and independent with his walker. He was treated with aspirin and foot pumps for DVT prophylaxis. On his first postoperative day he was thought stable for discharge Physical Exam Narrative: EXAM NARRATIVE: On the day of discharge his knee incision was clean. They had no drainage. There is minimal swelling in the thigh and knee and the calf. No distal neurovascular deficits were noted Urinary Catheter Management^: Phillips: Cath Placed During This Visit: yes Urinary Catheter Date of Insertion: 06/25/20 Urinary Catheter Time of Insertion: 07:35 Discharge Data Data Completed and Pending: Completed Studies During Hospitalization Category Date Time Status XR knee LT 1-2V 7 3560 Routine Exams 06/25/20 09:33 Completed CV echo complete* [id number] Routine Ultrasound 06/25/20 15:58 Completed Labs from last 24 hours 06/26/20 06/26/20 03:23 03:23 Hgb 13.6 Sodium 140 Potassium 4.8 Chloride 109 H Carbon Dioxide 21 L Anion Gap 14.8 BUN 30 H Creatinine 1.3 H GFR Calculation 55.4 L Glucose 136 H Calculated Osmolal ity 298 H Calcium 8.5 Vitals: Last Vital Signs Temp 97.5 F L 06/26/20 11:07 Pulse 43 L 06/26/20 11:07 Resp 18 06/26/20 11:07 BP 107/66 06/26/20 11:07 Pulse Ox 94 06/26/20 11:07 Discharge Plan Discharge Patient Disposition: Home Condition: Stable Prescriptions: New aspirin 325 mg Tablet,Delayed Release (Dr/Ec) 325 mg PO DAILY 30 Days Qty: 30 RF: 0 celecoxib 200 mg Capsule 200 mg PO Q12H 15 Days Qty: 30 RF: 0 gabapentin 300 mg Capsule 300 mg PO BID Qty: 20 RF: 0 hydrocodone-acetaminophen 5-325 mg tablet 1 tab PO Q4H Qty: 40 RF: 0 Continued tamsulosin [Flomax] 0.4 mg capsule 0.4 mg PO DAILY RF: 0 hydrocodone-acetaminophen 5-325 mg Tablet 1 - 2 tab PO Q4-5H PRN (Reason: Severe Pain (Scale Score 7-10)) RF: 0 acetaminophen [Tylenol Arthritis Pain] 650 mg Tablet Extended Release 650 mg PO Q12H PRN (Reason: PAIN) RF: 0 Discharge Orders: Discharge Order (Routine); Ordered 06/26/20 Ordered By: Naveen Brown Other Ambulatory Orders: [place] cardiac event monitor (Routine) Timeframe: 1 Day Facility: [facility] - Location: Cardiac Diagnostic Laboratory Ordered By: Champ Burrows DME: Trent (Order) Location: None Selected Ordered By: Naveen Brown Referrals: [facility] [Outside] [facility] Home Care ([facility]) [Outside] Arianne High MD [Physician] - 07/11/20 1:30 pm (sinus bradycardia, event monitor) Naveen Brown MD [Physician] - 07/10/20 10:45 am Discharge Diet: Advance as tolerated Discharge Activity: Limit activity as instructed Patient Instructions: Bradycardia, Aspirin (By mouth), Gabapentin (By mouth), Celecoxib (By mouth), Total Knee Replacement (DC) Activity Restrictions/Additional Instructions: May shower once incisions completely free of drainage. Discontinue knee dressing in 24-48 hours. Replaced dressings as needed. Take Celebrex twice a day for the next 15 days for pain , discontinue other anti-inflammatories Take Neurontin next 10 days for pain take hydrocodone for breakthrough pain. Exercises per physical therapy. May weight-bear as tolerated on total knee arthroplasty Discharge Attestations Time Spent in Discharge Care*: other Quality Metrics Clinical Quality Measures During this hospital stay, did patient experience: None Coding Level of Care Code Acute Deposition Operator for Chg Fwd Diagnoses Sinus bradycardia R00.1 AV block, 1st degree I44.0 Status post left knee replacement Z96.652 Osteoarthritis of left knee M17.12
[2020-06-26 12:30] VITALS: BP 107/66; PULSE 43; RESP 18; TEMP 36.4; O2SAT 94
--- NOTE | 2020-06-26 13:45 | PC.NURSE ---
Discharge education provided; paperwork given and signed. IV and syrup mixer helper removed. All questions answered. VSS. No s/s distress; pt denied any needs or concerns at time of discharge. Prescriptions sent with pt. All personal belongings sent with pt. Pt assisted by SALES PRODUCER via wheelchair to hospital entrance and assisted into private vehicle, where spouse was waiting. 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
== END 2020-06-26 13:00 | disposition home or self-care (01) ==
LOC: MEDSURG 13:19
PROVIDERS: Anesthesiology; Admitting Provider Orthopaedic Surgery; PCP Internal Medicine; Visit Provider Orthopaedic Surgery
PROC: (CPT 27447; principal; 2020-06-25 07:00)
DX: M17.12 Unilateral primary osteoarthritis, left knee (principal); R00.1 Bradycardia, unspecified; I44.0 Atrioventricular block, first degree; I45.4 Nonspecific intraventricular block; N40.0 Benign prostatic hyperplasia without lower urinary tract symptoms; Z87.891 Personal history of nicotine dependence; G47.30 Sleep apnea, unspecified
CPT/HCPCS: 27447; 12345; 36415; 51702; 64447; 73560; 76942; 80048; 85018; 93005; 93306; 96361; 96365; 96366; 96374; 97110; 97116; 97161; C1776; G0378; J0171; J0690; J1100; J1580; J1885; J2250; J2405; J2704; J2795; J3010; J3490; J7030

== ENCOUNTER 2020-07-17 09:36 | Outpatient (RCR) | payer MEDICARE, OTHER, SELFPAY | END 2020-08-09 23:59 | disposition home or self-care (01) | LOC: SPT 09:36 | PROVIDERS: PCP Internal Medicine; Referring Provider Orthopaedic Surgery; Visit Provider Orthopaedic Surgery | DX: Z47.1 Aftercare following joint replacement surgery (principal); Z96.652 Presence of left artificial knee joint | CPT/HCPCS: 97110; 97116; 97161 ==

== ENCOUNTER → 2020-07-19 15:52 | Outpatient (BNVA) | payer MEDICARE, OTHER, SELFPAY | PROVIDERS: PCP Internal Medicine; Visit Provider Internal Medicine Cardiovascular Disease | DX: N18.9 Chronic kidney disease, unspecified (principal); R00.1 Bradycardia, unspecified | CPT/HCPCS: 84443 ==

== ENCOUNTER → 2020-08-07 11:43 | Outpatient (BNVA) | payer MEDICARE, OTHER, SELFPAY | PROVIDERS: PCP Internal Medicine; Visit Provider Orthopaedic Surgery | DX: Z48.89 Encounter for other specified surgical aftercare (principal); Z96.652 Presence of left artificial knee joint | CPT/HCPCS: 73560; 73565 ==

== ENCOUNTER 2020-10-03 20:00 | Outpatient (CLI) | payer MEDICARE, OTHER, SELFPAY | END 2020-10-03 20:01 | disposition home or self-care (01) | LOC: SLEEP 10-04 09:04 | PROVIDERS: PCP Internal Medicine; Visit Provider Internal Medicine Cardiovascular Disease | DX: G47.33 Obstructive sleep apnea (adult) (pediatric) (principal) | CPT/HCPCS: 95810 ==

== ENCOUNTER → 2020-11-14 08:37 | Outpatient (BNVA) | payer MEDICARE, OTHER, SELFPAY | PROVIDERS: PCP Internal Medicine; Visit Provider Urology | DX: R97.20 Elevated prostate specific antigen [PSA] (principal); R39.9 Unspecified symptoms and signs involving the genitourinary system; N40.1 Benign prostatic hyperplasia with lower urinary tract symptoms | CPT/HCPCS: 81003; 84153 ==

== ENCOUNTER → 2021-02-13 08:18 | Outpatient (BNVA) | payer MEDICARE, OTHER, SELFPAY | PROVIDERS: PCP Internal Medicine; Visit Provider Urology | DX: N40.1 Benign prostatic hyperplasia with lower urinary tract symptoms (principal); N39.41 Urge incontinence | CPT/HCPCS: 81003 ==

== ENCOUNTER → 2021-02-21 14:12 | Outpatient (BNVA) | payer MEDICARE, OTHER, SELFPAY | PROVIDERS: PCP Internal Medicine; Visit Provider Orthopaedic Surgery | DX: M48.061 Spinal stenosis, lumbar region without neurogenic claudication (principal); M47.896 Other spondylosis, lumbar region; M54.5 Low back pain | CPT/HCPCS: 72110 ==

== ENCOUNTER 2021-03-04 08:59 | Observation (INO) | payer MEDICARE, OTHER, SELFPAY ==
[2021-03-04] VITALS (10 sets, daily range): BP systolic 125–184; BP diastolic 66–96; PULSE 47–118; RESP 12–21; TEMP 36.6–36.8; O2SAT 94–99; BMI 32.3
--- NOTE | 2021-03-04 09:18 | XR_ITS ---
WS: [id number] XR chest 1V portable [id number] REASON FOR EXAM: Cough FINDINGS: The heart and mediastinum are within normal limits. Calcified granulomatous disease is seen bilaterally. No active pulmonary parenchymal or pleural disea se is noted. The bony thorax is intact with moderate degenerative spondylosis in the mid and lower thoracic spine. XR/XR chest 1V portable [id number] IMPRESSION: No acute chest abnormality.
--- NOTE | 2021-03-04 09:18 | CT_ITS ---
WS: [id number] CT cervical spin wo con* [id number] REASON FOR EXAM: Trauma IV CONTRAST ADMINISTERED: Noncontrast TOTAL EXAM DLP: 928.[address] scans at [facility] use at least one of these dose optimization techniques: automat ed exposure control; mA and/or kV adjustment per patient size (includes targeted exams where dose is matched to clinical indication); or iterative reconstruction. FINDINGS: There is noted to be a thin subcutaneous hematoma in the left temporal region with no bony calvarial abnormality. Degenerative change in the odontoid C1 articulation with narrowing of the joint space, subchondral sc lerosis, and ligamentous calcification. Minimal impingement on the cervical medullary junction. No focal vertebral body abnormality, no compression fracture. Normal alignment of the vertebral marvin s. The facet joints demonstrate normal alignment and no fracture is identified. Multilevel degenerative disc disease C3-C6 with narrowing of the disc spaces and prominent posterior disc osteophyte formation. CT/CT cervical spin wo con* [id number] IMPRESSION: Soft tissue hematoma left temporal region as above. No acute cervical spine abnormality. Multilevel degenerative spondylosis.
--- NOTE | 2021-03-04 09:18 | CT_ITS ---
WS: [id number] CT head wo con* [id number] REASON FOR EXAM: HEADACHE IV CONTRAST ADMINISTERED: TOTAL EXAM DLP: 1044.[address] scans at [facility] use at least one of these dose optimization techniques: automat ed exposure control; mA and/or kV adjustment per patient size (includes targeted exams where dose is matched to clinical indication); or iterative reconstruction. FINDINGS: There is no midline shift or other significant mass effect. There are no findings of intracranial hemorrhage and no extra-axial fluid collection noted. No high or low attenuation regions in the brain parenchyma are identified. The brainstem and cerebell ar hemispheres are normal. Normal ventricular volume. Normal bony calvarium. CT/CT head wo con* [id number] IMPRESSION: No acute intracranial abnormality.
--- NOTE | 2021-03-04 09:19 | ECG_ITS ---
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 Measurements Intervals [place] Rate: 62 P: 52 LA: 230 QRS: 8 QRSD: 113 T: 22 QT: 395 QTc: 402 Interpretive Statements SINUS RHYTHM WITH SINUS ARRHYTHMIA WITH FIRST DEGREE AV BLOCK MODERATE INTRAVENTRICULAR CONDUCTION DELAY [110+ ms QRS DURATION] Compared to ECG 06/25/2020 13:16:05 Intraventricular conduction delay now present Sinus bradycardia no longer present Right bundle-branch block no longer present Electronically Signed On 03-04-2021 13:45:53 CDT by Carmen Lpoez M.D. [email or web address]
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
--- NOTE | 2021-03-04 09:22 | XR_ITS ---
WS: [id number] [place] [id number] REASON FOR EXAM: injury FINDINGS: Mild to moderate degenerative changes in the acromioclavicular joint with marginal spurring and narro wing of the joint space. The glenohumeral joint is intact, normally aligned. No fracture or other focal bony abnormality is identified. XR/[place] [id number] IMPRESSION: No acute abnormality.
[2021-03-04 10:39] LABS: Amphetamines Screen Urine Negative (Negative); Barbiturates Screen Urine Negative (Negative); Benzodiazepines Screen Urine Negative (Negative); Cocaine Screen Urine Negative (Negative); Opiate Screen Urine Negative (Negative); PCP Screen Urine Negative (Negative); THC Screen Urine Negative (Negative)
[2021-03-04] MEDS: sodium chloride 0.9% 500 ML IV (10:41)
[2021-03-04 10:49] LABS: Glucose Urine UA Norm (Normal); Ketones Urine Negative (Negative); Protein Urine 1+ (Negative); Specific Gravity, Urine 1.015 (1.005-1.030); Urine Appearance Clear (CLEAR); Urine Color Straw (Yellow); pH Urine 5 (5-7)
[2021-03-04 10:50] LABS: Add Urine Microscopic? YES; Bilirubin Urine Neg (Negative); Blood Urine 2+ (Negative); Leukocyte Esterase Urine Negative (Negative); Nitrate Urine Negative (Negative); Urobilinogen Urine Norm (Negative)
[2021-03-04 10:51] LABS: Add Urine Culture? No; Bacteria Urine TRACE /hpf; Coarse Granular Casts Urine 0-4 /lpf; Mucus Urine TRACE /hpf; WBC Urine 0-4 /hpf (0-5)
--- NOTE | 2021-03-04 11:19 | ECG_ITS ---
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 Measurements Intervals [place] Rate: 63 P: 64 HI: 248 QRS: 34 QRSD: 111 T: 38 QT: 389 QTc: 399 Interpretive Statements SINUS RHYTHM WITH SINUS ARRHYTHMIA WITH FIRST DEGREE AV BLOCK PROBABLE INFERIOR MYOCARDIAL INFARCTION [35 ms Q WAVE IN II/aVF], PROBABLY OLD Compared to ECG 03/04/2021 09:43:21 Myocardial infarct finding now present Intraventricular conduction delay no longer present Electronically Signed On 03-04-2021 22:23:00 CDT by Carmen Lopez M.D. [id number]
[2021-03-04 12:23] LABS: Basophils % 0.3 %; Eosinophils # 0.1 10^3/uL (0.0-0.8); Eosinophils % 0.9 %; Hematocrit 50.1 % (42.0-52.0); Lymphocytes # 1.4 10^3/uL (0.8-4.8); Lymphocytes % 13.5 %; Mean Corpuscular HGB Conc 31.9 g/dL (30.0-36.0); Mean Corpuscular Volume 93.8 fL (80-94); Mean Platelet Volume 9.1 fL (7.4-10.4); Monocytes # 1.2 10^3/uL (0.2-0.9); Monocytes % 10.9 %; Neutrophils # 7.81 10^3/uL (1.8-7.7); Neutrophils % 73.9 %; Nucleated Red Blood Cells % 0 %; Platelet Count 225 10^3/cmm (130-400); Red Blood Count 5.34 10^6/uL (4.1-5.3); Red Cell Distribution Width 14.6 % (12.1-15.1); White Blood Count 10.6 10^3/uL (4.0-10.0)
[2021-03-04 12:35] LABS: INR 1.01 (0.8-1.2)
[2021-03-04 12:36] LABS: Partial Thromboplastin Time 27.3 SECONDS (23.9-36.7)
[2021-03-04 12:44] LABS: Troponin(5th) Baseline 18 ng/L (0-15)
[2021-03-04 12:52] LABS: Alanine Aminotransferase 23 U/L (0-41); Albumin Level 3.7 g/dL (3.5-5.2); Alkaline Phosphatase 89 IU/L (40-130); Anion Gap 12.5 (5-19); Aspartate Amino Transferase 18 U/L (0-40); Blood Urea Nitrogen 22 mg/dL (8-23); Calcium 8.4 mg/dL (8.5-10.5); Carbon Dioxide 26 mmol/L (22-29); Chloride 107 mmol/L (98-107); Globulin 2.5 g/dL (1.3-4.6); Glomerular Filtration Rate 74.8 mL/min (90-130); Glucose 105 mg/dL (65-115); NT Pro B Type Natriuretic Pept 28 pg/mL (0-125); Osmolality Calculated 296 mOsm/kg (285-295); Potassium 4.5 mmol/L (3.5-5.1); Sodium 141 mmol/L (136-145); Total Bilirubin 0.4 mg/dL (0.15-1.2); Total Protein 6.2 g/dL (6.6-8.7)
[2021-03-04 12:53] LABS: Alcohol Level < 10 mg/dL (0-10)
[2021-03-04 15:06] LABS: Troponin 5 2HR 17.36 ng/L (0-15)
[2021-03-04 15:11] LABS: Troponin 5 2HR Delta -0.64 ABS# (0-10)
[2021-03-04 18:42] LABS: Troponin 5 6HR 17.03 ng/L (0-15)
[2021-03-04 18:48] LABS: Troponin 5 6HR Delta -0.97 ng/L (0-12)
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
--- NOTE | 2021-03-04 20:48 | ECG_ITS ---
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 Measurements Intervals [place] Rate: 66 P: 61 IA: 232 QRS: 33 QRSD: 112 T: 53 QT: 369 QTc: 387 Interpretive Statements SINUS RHYTHM WITH FIRST DEGREE AV BLOCK INCOMPLETE RIGHT BUNDLE BRANCH BLOCK [90+ ms QRS DURATION, TERMINAL R IN V1/V2, 40+ ms S IN I/aVL/V4/V5/V6] Compared to ECG 03/04/2021 13:23:54 Incomplete right bundle-branch block now present Sinus arrhythmia no longer present Myocardial infarct finding no longer present Electronically Signed On 03-11-2021 0:35:30 CDT by Carmen Lopez M.D. [id number]
[2021-03-04] MEDS: neomycin-poly-bacitracin oint 0.9 gm Pkt 1 APPLIC TOPICAL (21:05)
[2021-03-04] MEDS: heparin 5,000 unit/mL INJ 1 mL 5000 UNIT SUBCUT (21:08)
[2021-03-04] MEDS: dextrose 5%-sod chloride 0.45% 1,000 ML 75 ML IV (21:09)
[2021-03-05] VITALS (10 sets, daily range): BP systolic 107–146; BP diastolic 56–94; PULSE 52–76; RESP 12–95; TEMP 36.4–37.1; O2SAT 90–98
--- NOTE | 2021-03-05 00:28 | PC.NURSE ---
Report called to Malena on CSU at [phone]. Room not ready.
[2021-03-05] MEDS: sodium chloride 0.9% 1,000 ML 100 ML IV ×2 (02:20→12:51)
--- NOTE | 2021-03-05 02:48 | ECG_ITS ---
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 Measurements Intervals [place] Rate: 61 P: 67 ID: [id number] QRS: 50 QRSD: 110 T: 49 QT: 383 QTc: 387 Interpretive Statements SINUS RHYTHM WITH SINUS ARRHYTHMIA WITH FIRST DEGREE AV BLOCK INCOMPLETE RIGHT BUNDLE BRANCH BLOCK [90+ ms QRS DURATION, TERMINAL R IN V1/V2, 40+ ms S IN I/aVL/V4/V5/V6] Compared to ECG 03/04/2021 22:13:40 No significant changes Electronically Signed On 03-05-2021 14:58:39 CDT by Dannie Arroyo M.D. [id number]
[2021-03-05 02:54] LABS: Basophils % 0.3 %; Eosinophils # 0.1 10^3/uL (0.0-0.8); Eosinophils % 1.4 %; Hematocrit 48.9 % (42.0-52.0); Hemoglobin 15.6 g/dL (11.7-16.6); Lymphocytes # 1.7 10^3/uL (0.8-4.8); Lymphocytes % 24.5 %; Mean Corpuscular HGB Conc 31.9 g/dL (30.0-36.0); Monocytes % 14.6 %; Neutrophils # 4.09 10^3/uL (1.8-7.7); Neutrophils % 58.8 %; Nucleated Red Blood Cells % 0 %; Platelet Count 216 10^3/cmm (130-400); Red Cell Distribution Width 14.6 % (12.1-15.1)
[2021-03-05 03:19] LABS: Troponin 5 6HR 16.76 ng/L (0-15)
[2021-03-05 03:21] LABS: Alanine Aminotransferase 19 U/L (0-41); Albumin Level 3.5 g/dL (3.5-5.2); Alkaline Phosphatase 81 IU/L (40-130); Anion Gap 13.1 (5-19); Aspartate Amino Transferase 16 U/L (0-40); Blood Urea Nitrogen 16 mg/dL (8-23); Calcium 8.2 mg/dL (8.5-10.5); Carbon Dioxide 23 mmol/L (22-29); Chloride 107 mmol/L (98-107); Glomerular Filtration Rate 84.4 mL/min (90-130); Glucose 98 mg/dL (65-115); Osmolality Calculated 289 mOsm/kg (285-295); Potassium 4.1 mmol/L (3.5-5.1); Sodium 139 mmol/L (136-145); Total Bilirubin 0.6 mg/dL (0.15-1.2); Total Protein 5.5 g/dL (6.6-8.7)
[2021-03-05] MEDS: heparin 5,000 unit/mL INJ 1 mL 5000 UNIT SUBCUT (08:05)
--- NOTE | 2021-03-05 09:50 | PC.CHAP ---
Pastoral Care Encounter/Spiritual Assessment Type of Contact [] Declined sap integration architect visit [] Patient/Family/Request visit [] Outpatient visit [] Follow-up visit [] Physician referral [] Code/Alert [x] Routine visit [] Staff referral [] Actively dying [x] Patient sleeping [] Family support [] [] Out of room [] Palliative care [] [] Receiving care in room [] Pre-surgical visit [] Trauma [] Long length of stay [] ICU visit [] Other: Relational/Emotional Strength [] Patient feels connected with others/family/visitors/staff [] Distress [] Loneliness/isolation [] Abandonment Spirituality of Patient [] Person of Mindy [] Attends Scientologist of their Mindy [] Believes in Prayer [] Reads Bible or Gnosticism materials [] There are Spiritual issues to be addressed Senior It Recruiter Interventions [x] Prayer [] Active listening [] Non-anxious presence [] Spiritual/emotional support [] Crisis/trauma care [] Spiritual counseling [] Bereavement support [] Provided bereavement packet [] Provided Bible/devotional materials [] Provided toy/stuffed animal, coloring book to patient or family member [] Provided Communion [] Anointing/[place] [] Salvation [x] Completed spiritual assessment [] Other: Impact on Illness or Injury [] Angry [] Fearful [] Anxious [] Often cries [] Exhaustion [] Unable to work [] Unable to attend congregation [] Unable to walk/stand [] Unable to read [] Unable to drive [] Unable to eat/drink [] Unable to sleep [] Unable to be with family [] Patient intubated [] Other: Summary Time spent with patient
--- NOTE | 2021-03-05 13:27 | PC.NURSE ---
spoke with physician regarding fluids, physician wants NS running, d/c D5.
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
--- NOTE | 2021-03-05 17:54 | PC.NURSE ---
pt education provided, f/u appointments made. pt left facility with . vs stable upon departure.
== END 2021-03-05 17:45 | disposition home or self-care (01) ==
LOC: ER 19:14 → CSU 23:15
PROVIDERS: Family Medicine; Admitting Provider Internal Medicine; Emergency Provider Emergency Medicine; PCP Internal Medicine; Visit Provider Internal Medicine
DX: S06.9X9A Unspecified intracranial injury with loss of consciousness of unspecified duration, initial encounter (principal); V89.2XXA Person injured in unspecified motor-vehicle accident, traffic, initial encounter; T07.XXXA Unspecified multiple injuries, initial encounter; M48.062 Spinal stenosis, lumbar region with neurogenic claudication; I49.5 Sick sinus syndrome; I45.4 Nonspecific intraventricular block; R00.1 Bradycardia, unspecified; I44.0 Atrioventricular block, first degree; N40.1 Benign prostatic hyperplasia with lower urinary tract symptoms; N13.8 Other obstructive and reflux uropathy; G47.33 Obstructive sleep apnea (adult) (pediatric); Z82.49 Family history of ischemic heart disease and other diseases of the circulatory system; Z87.891 Personal history of nicotine dependence
CPT/HCPCS: 36415; 70450; 71045; 72125; 73060; 80053; 80306; 80307; 81001; 83880; 84484; 85025; 85610; 85730; 93005; 96361; 96372; 96374; 99285; G0378; J1644; J7030; J7040; J7799

== ENCOUNTER 2021-04-24 12:57 | Outpatient (CLI) | payer MEDICARE, OTHER, SELFPAY ==
--- NOTE | 2021-04-24 13:05 | MR_ITS ---
WS: [id number] MRI LUMBAR SPINE NONCONTRAST TECHNIQUE: Sagittal T1, T2 and STIR imaging. Axial T1 and T2 imaging. CLINICAL INFORMATION: SPINAL STENOSIS, LUMBAR REGION COMPARISON: None FINDINGS: Mild lumbar curve. No acute compression. Mild disc bulging L3-L4 and L4-L5. L1-L2: Mild annular bulging with slight effacement of ventral thecal sac. Slight narrowing of the lef t subarticular recess. Mild facet arthropathy. Foramen are patent. L2-L3: Mild annular bulging with mild central canal stenosis. Slight narrowing of the subarticular re cess bilaterally. Moderate facet arthropathy with ligamentum flavum flavum hypertrophy. Mild right an d no significant left foraminal narrowing. L3-L4: Mild disc bulging with slight retrolisthesis L3 on L4. Moderate to severe central canal stenos is with moderate facet arthropathy and ligamentum flavum hypertrophy. Impingement subarticular recess bilaterally. Moderate left and mild right foraminal narrowing. L4-L5: Mild disc bulging and osteophytic ridging. Moderate to severe central canal stenosis. Impingem ent traversing right L5 nerve root in the subarticular recess. Moderate right and mild left foraminal narrowing. L5-S1: No significant disc bulging. Moderate to advanced facet arthropathy. Spinal canal and foramen are patent. Hypertrophic changes sacroiliac joints. MR/MR lumbar spine wo con* [id number] IMPRESSION: 1. Mild lumbar curve. No acute compression. 2. Moderate to severe central canal stenosis L3-4 and L4-5 due to disc bulging in combination with facet arthropathy and ligamentum flavum hypertrophy. 3. Impingement on the right L4-L5 subarticular recess and traversing right L5 nerve root. Moderate right L4-5 foraminal narrowing. 4. Mild central canal stenosis L2-3. 5. Small left foraminal protrusion L3-4 with moderate left foraminal narrowing . 6. Moderate to advanced facet arthropathy L3-L5.
== END 2021-04-24 12:58 | disposition home or self-care (01) ==
PROVIDERS: PCP Internal Medicine; Visit Provider Orthopaedic Surgery
DX: M48.061 Spinal stenosis, lumbar region without neurogenic claudication (principal); M51.26 Other intervertebral disc displacement, lumbar region; M47.816 Spondylosis without myelopathy or radiculopathy, lumbar region
CPT/HCPCS: 72148

== ENCOUNTER → 2021-05-15 10:28 | Outpatient (BNVA) | payer MEDICARE, OTHER, SELFPAY | PROVIDERS: PCP Internal Medicine; Visit Provider Urology | DX: N40.1 Benign prostatic hyperplasia with lower urinary tract symptoms (principal) | CPT/HCPCS: 81003 ==

== ENCOUNTER → 2021-05-30 12:56 | Outpatient (BNVA) | payer MEDICARE, OTHER, SELFPAY | PROVIDERS: PCP Internal Medicine; Referring Provider Orthopaedic Surgery; Visit Provider Anesthesiology Pain Medicine | DX: M48.062 Spinal stenosis, lumbar region with neurogenic claudication (principal); M47.816 Spondylosis without myelopathy or radiculopathy, lumbar region; M51.16 Intervertebral disc disorders with radiculopathy, lumbar region; M79.604 Pain in right leg; Z79.891 Long term (current) use of opiate analgesic | CPT/HCPCS: 99205 ==

== ENCOUNTER → 2021-06-11 12:57 | Outpatient (BNVA) | payer MEDICARE, OTHER, SELFPAY | PROVIDERS: PCP Internal Medicine; Visit Provider Anesthesiology Pain Medicine | DX: M54.16 Radiculopathy, lumbar region (principal); M48.062 Spinal stenosis, lumbar region with neurogenic claudication | CPT/HCPCS: 64483 ==

== ENCOUNTER 2021-09-09 12:01 | Outpatient (CLI) | payer MEDICARE, OTHER, SELFPAY ==
--- NOTE | 2021-09-09 08:30 | XR_ITS ---
WS: [id number] LUMBAR SPINE TECHNIQUE: 5 views of the lumbar spine CLINICAL INFORMATION: M51.16 - Intervertebral disc disorders with radiculopathy... COMPARISON: None. FINDINGS: Five [id number] lumbar vertebral bodies. Mild lumbar curve convex right. Disc space narrowing wo rse at L4-L5 and L5-S1. Slight retrolisthesis L3 on L4. Moderate facet arthropathy L4-L5 and L5-S1. N o acute compression fractures. Degenerative arthritis sacroiliac joints bilaterally. No significant c hanges since February 21, 2021. XR/XR lumbar spine min 4V 73324 IMPRESSION: 1. Mild lumbar curve convex right. 2. No acute compression fractures. 3. Moderate facet arthropathy L4-L5 and L5-S1. 4. Disc space narrowing worse at L4-L5 and L5-S1.
== END 2021-09-09 12:02 | disposition home or self-care (01) ==
LOC: RAD 12:18
PROVIDERS: PCP Internal Medicine; Visit Provider Physician Assistant
DX: M51.16 Intervertebral disc disorders with radiculopathy, lumbar region (principal); M47.816 Spondylosis without myelopathy or radiculopathy, lumbar region; M47.817 Spondylosis without myelopathy or radiculopathy, lumbosacral region
CPT/HCPCS: 72110

== ENCOUNTER 2021-10-04 07:58 | Outpatient (CLI) | payer MEDICARE, OTHER, SELFPAY ==
--- NOTE | 2021-10-04 08:10 | CT_ITS ---
WS: [id number] LDCT LUNG CANCER SCREENING HISTORY: HISTORY OF TOBACCO USE TECHNIQUE: Axial imaging performed from the apices to 1 cm below the costophrenic angles. Coronal and sagittal reformats are submitted with axial MIP series. All CT scans at [facility] use at least one of these dose optimization techniques: automated exposure control; mA and/or kV adjustment per patient size (includes targeted exams where dose is matched to clinical indication); or iterativ e reconstruction. DLP: 55.77 mGy.cm DIvol: Mean CTDIvol: 1.58 (mGy) COMPARISON: None available. Diagnostic quality: Satisfactory Lung Nodules: No pulmonary nodule, mass or endobronchial lesions. Lungs: Mild hyperexpansion with paraseptal emphysematous changes at the apices. Heart: Mild enlargement of the heart. No pericardial effusion. Other findings: Very minimal atherosclerotic changes within the thoracic aorta. 12 mm low RIGHT parat amrita lymph node. Fatty hilum is still present. Small hiatal hernia. Mild increase in thoracic kyph osis. CT/CT lung screening [id number] IMPRESSION: LUNG-RADS: 1-Negative FOLLOW UP: 12 Month: Continue annual screening with LDCT OTHER FINDINGS (S MODIFIER): None.
== END 2021-10-04 07:59 | disposition home or self-care (01) ==
LOC: RAD 08:03
PROVIDERS: PCP Internal Medicine; Visit Provider Internal Medicine
DX: Z12.2 Encounter for screening for malignant neoplasm of respiratory organs (principal); Z87.891 Personal history of nicotine dependence
CPT/HCPCS: 71271

== ENCOUNTER → 2021-12-03 14:01 | Outpatient (BNVA) | payer MEDICARE, OTHER, SELFPAY | PROVIDERS: PCP Internal Medicine; Visit Provider Orthopaedic Surgery | DX: M48.062 Spinal stenosis, lumbar region with neurogenic claudication (principal) | CPT/HCPCS: 99214 ==

== ENCOUNTER 2022-02-26 05:50 | Day surgery (SDC) | payer MEDICARE, OTHER, SELFPAY ==
[2022-02-21 10:45] VITALS: BMI 34.4
--- NOTE | 2022-02-21 10:50 | ECG_ITS ---
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 Measurements Intervals [place] Rate: 40 P: 7 MS: 216 QRS: -5 QRSD: 107 T: 15 QT: 430 QTc: 354 Interpretive Statements SINUS BRADYCARDIA WITH FIRST DEGREE AV BLOCK LOW QRS VOLTAGE IN PRECORDIAL LEADS [QRS DEFLECTION < 1.0 mV IN CHEST LEADS] INCOMPLETE RIGHT BUNDLE BRANCH BLOCK [90+ ms QRS DURATION, TERMINAL R IN V1/V2, 40+ ms S IN I/aVL/V4/V5/V6] INFERIOR MYOCARDIAL INFARCTION , PROBABLY OLD [40+ ms Q WAVE AND/OR ST/T ABNORMALITY IN II/aVF] CRITICAL TEST RESULT Compared to ECG 03/05/2021 05:54:20 Low QRS voltage now present Myocardial infarct finding now present Sinus rhythm no longer present Sinus arrhythmia no longer present Electronically Signed On 02-21-2022 17:18:50 CDT by Jorge Paredes M.D. [id number]
[2022-02-21 12:04] LABS: Basophils % 0.8 %; Eosinophils # 0.1 10^3/uL (0.0-0.8); Eosinophils % 2.1 %; Hematocrit 50.5 % (42.0-52.0); Hemoglobin 16.2 g/dL (11.7-16.6); Lymphocytes # 2.1 10^3/uL (0.8-4.8); Lymphocytes % 39.8 %; Mean Corpuscular HGB Conc 32.1 g/dL (30.0-36.0); Mean Corpuscular Hemoglobin 30.2 pg (28.0-34.0); Mean Platelet Volume 9.5 fL (7.4-10.4); Monocytes # 0.6 10^3/uL (0.2-0.9); Monocytes % 11.7 %; Neutrophils # 2.37 10^3/uL (1.8-7.7); Neutrophils % 45.2 %; Nucleated Red Blood Cells % 0 %; Platelet Count 244 10^3/cmm (130-400); Red Blood Count 5.37 10^6/uL (4.1-5.3); Red Cell Distribution Width 13.4 % (12.1-15.1); White Blood Count 5.2 10^3/uL (4.0-10.0)
[2022-02-21 12:30] LABS: Blood Urea Nitrogen 20 mg/dL (8-23); Calcium 9.2 mg/dL (8.5-10.5); Carbon Dioxide 25 mmol/L (22-29); Chloride 104 mmol/L (98-107); Glomerular Filtration Rate 84.2 mL/min (90-130); Glucose 92 mg/dL (65-115); Osmolality Calculated 288 mOsm/kg (285-295); Sodium 138 mmol/L (136-145)
[2022-02-21 12:34] LABS: Anion Gap 13.5 (5-19); Potassium 4.5 mmol/L (3.5-5.1)
--- NOTE | 2022-02-21 15:38 | ANES.PREANE2 ---
Pre-Anesthetic Assessment Height/Weight: Height 1.78 m Weight 108.862 kg Preop Diagnosis: lumar disc disease with radiculopathy Operation Date: 02/26/22 07:00 Proposed Procedures p Right L3-4 L4-5 Minimally Invasive Decompression 72293 [id number] M48.062(Right) - Devon Valencia DO Familial anesthetic complications: None Was Beta Brittani taken within 24 hours: N/A Was Clonidine taken within 24 hours: N/A Social No alcohol and No tobacco Exam alert, oriented x 3, clear to auscultation bilaterally and regular rate & rhythm Airway Submandibular: within normal limits Cervical ROM: within normal limits Mallampati: Class I Dentition: false History/ROS No significant complaints Pulmonary Sleep Apnea (USES CPAP) CV/HEM Arrythmia (1st degree block ) and None reported Evaluated by cardiology for sinus node dysfunction no intervention planned No hx of symptoms from bradycardia denies palpitations, lightheadedness, syncope, tachycardia EKG 02/21/22 ? Interpretive Statements SINUS BRADYCARDIA WITH FIRST DEGREE AV BLOCK LOW QRS VOLTAGE IN PRECORDIAL LEADS? [QRS DEFLECTION < 1.0 mV IN CHEST LEADS] INCOMPLETE RIGHT BUNDLE BRANCH BLOCK? [90+ ms QRS DURATION, TERMINAL R IN V1/V2, 40+ ms S IN I/aVL/V4/V5/V6] INFERIOR MYOCARDIAL INFARCTION , PROBABLY OLD [40+ ms Q WAVE AND/OR ST/T ABNORMALITY IN II/aVF] CRITICAL TEST RESULT Compared to ECG 03/05/2021 05:54:20 Low QRS voltage now present Myocardial infarct finding now present Sinus rhythm no longer present Sinus arrhythmia no longer present [id number] TTE 06/2020 ?CONCLUSIONS ?1.? This is a technically difficult study. ?2. Normal left ventricular size, systolic function and wall ?thickness, with no regional wall motion abnormalities. Left ?ventricular ejection fraction is estimated at 70 %.? Normal ?diastolic function. ?3.? Normal pulmonary artery pressure. ?4.? No significant valvular abnormality. ?5.? Normal-sized aortic root. ?6.? No prior similar studies to compare. ' BPH Hepatic None reported GI None reported Metabolic None reported Musc/skel Lower Back Pain and Osteoarthritis/DJD Neuropsych Hx of TBI Anesthetic Plan ASA status: 2 Anesthesia: Anesthesia Evaluation and General Other: We discussed risk and benefits of general anesthesia including PONV, sore throat (sometimes severe), corneal abrasion, positioning and peripheral nerve injuries, life threatening allergic reaction, post operative ICU admission requiring prolonged intubation, stroke, heart attack, , and rare incidences of recall. Patient consents to proceed with general anesthesia. Plan GETA and arterial line given baseline bradycardia Risk of > 500 ml blood loss (7ml/kg in children): No Medications/Allergies Home Medications Medication Instructions Recorded Confirmed Last Taken Type tamsulosin 0.4 mg capsule (Flomax) 0.4 mg PO DAILY 02/21/22 02/21/22 Unknown History Allergies Allergy/AdvReac Type Severity Reaction Status Date / Time No Known Allergies Allergy Verified 02/21/22 10:42 [facility] Anesthesia Medical History BPH loc w urin obs/LUTS Diverticulitis Obstructive sleep apnea Sinus node dysfunction Surgical History History of bilateral cataract extraction History of carpal tunnel surgery Family History Brother Heart attack Stroke Mother Liver cancer Other Cancer Dementia Lung disease Denies family history of Diabetes CAD (coronary artery disease) Hyperlipidemia Chronic kidney disease (CKD) Anesthesia complication Bleeding disorder Hypertension Social History Smoking and tobacco status: former smoker (7 years) Alcohol intake: never Marital status: Current occupational status: retired History of recent travel: No Data Anesthesia : 02/21/22 11:45 02/21/22 11:45 Short CBC 02/21/22 Range/Units 11:45 WBC 5.2 (4.0-10.0) 10^3/uL Hgb 16.2 (11.7-16.6) g/dL Hct 50.5 (42.0-52.0) % MCV 94.0 (80-94) fl Plt Count 244 (130-400) 10^3/cmm Neut % (Auto) 45.2 % Neut # (Auto) 2.37 (1.8-7.7) 10^3/uL BMP 02/21/22 11:45 Sodium 138 Potassium 4.5 Chloride 104 Carbon Dioxide 25 BUN 20 Creatinine 0.9 Glucose 92 Calcium 9.2 Cardiac Studies: Echocardiogram Ultrasound 06/25/20 Holter Monitor 08/15/20
[2022-02-26] VITALS (10 sets, daily range): BP systolic 110–143; BP diastolic 50–91; PULSE 48–81; RESP 16–18; TEMP 36.2–36.4; O2SAT 91–96
--- NOTE | 2022-02-26 | XR_ITS ---
WS: [id number] XR lumbar spine 1V [id number] REASON FOR EXAM: right L3-5 decompression FINDINGS: Surgical device initially overlying the right aspect of the L3-L4 disc space. Second image demonstrates the surgical device overlying the right aspect of the L4-L5 disc space. XR/XR lumbar spine 1V [id number] IMPRESSION: Lumbar levels localized in surgery as above.
--- NOTE | 2022-02-26 | SCC_ITS ---
Procedure done: 1. L3/4 laminectomy with partial facetectomy 2. L4/5 laminectomy with partial facetectom 18.5 seconds of fluoroscopic guidance, for a cumulative dose of 12.50 mGy, was provided to Dr. Valencia by the radiology department. C-arm images of the lumbar spine were saved for the patient's permanent record. [facility]
[2022-02-26] MEDS: sodium chloride 0.9% 1,000 ML 30 ML IV (06:28)
--- NOTE | 2022-02-26 06:35 | P.ANESUD_ITS ---
Pre-Anesthetic Update Pre-Anesthetic Assessment: Date of Surgery/Procedure: 02/26/22 Preop Val gnosis: Lumbar stenosis w/Neurogenic Claudication Proposed Procedure: Operation Date: 02/26/22 07:00 Proposed Procedures p Right L3-4 L4-5 Minimally Invasive Decompression [id number] M48.062(Right) - Devon Valencia, DO Any changes to Pre-Anesthetic Assessment?: No Last Intake: Intake Last Liquid Date 02/25/22 Last Liquid Time 20:00 Last Solid Date 02/25/22 Last Solid Time 20:00 Vitals: Temperature 97.2 F L 02/26/22 06:01 Temperature Source Temporal Artery S can 02/26/22 06:01 Pulse Rate 57 L 02/26/22 06:01 Pulse Rhythm 02/26/22 06:09 Pulse Strength 3+ Normal 02/26/22 06:09 Respiratory Rate 18 02/26/22 06:01 Blood Pressure 132/75 02/26/22 06:01 Blood Pressure Kathrine n 94 02/26/22 06:01 Pulse Oximetry 93 02/26/22 06:01 Oxygen Delivery Me thod 02/26/22 06:09 Exam: Pre-Anes Outpt Exam: alert, oriented x 3, clear to auscultation bilaterally and regular rate & rhythm Cardiac Studies: Echocardiogram Ultrasound 06/25/20 Holter Monitor 08/15/20
--- NOTE | 2022-02-26 06:58 | P.HP_ITS ---
Providers/Chief Complaint Primary Care Provider: Tiago Sung DO History of Present Illness Tiago Petersen is a 66 year old male Patient states his pain is a 3/10 today. Patient describes his pain to be located in his lower back that travels down his lateral right leg. He states his pain has been on going for years. He has found no comfort from anything. Review of Systems General: Reports: 10 or more systems reviewed and unremarkable except in HPI and below Const: Denies: fever(s) Eyes: Denies: eye discharge ENMT: Denies: throat pain Card: Denies: chest pain Resp: Denies: dyspnea GI: Denies: nausea or vomiting : Denies: urinary incontinence Musc: Reports: back pain and joint pain Skin/Breast: Denies: rash Psych: Denies: anxiety Endo: Denies: polyuria Blas/Lymph: Denies: easy bruising All/Imm: Denies: facial swelling Medications/Allergies Home Medications Medication Instructions Recorded Confirmed Last Taken Type tamsulosin 0.4 mg capsule (Flomax) 0.4 mg PO DAILY 02/21/22 02/26/22 02/25/22 History Allergies Allergy/AdvReac Type Severity Reaction Status Date / Time No Known Allergies Allergy Verified 02/21/22 10:42 PFSH Acute 2 PFSH: Medical History BPH loc w urin obs/LUTS Diverticulitis Obstructive sleep apnea Sinus node dysfunction Surgical History History of bilateral cataract extraction History of carpal tunnel surgery Family History Brother Heart attack Stroke Mother Liver cancer Other Cancer Dementia Lung disease Denies family history of Diabetes CAD (coronary artery disease) Hyperlipidemia Chronic kidney disease (CKD) Anesthesia complication Bleeding disorder Hypertension Social History Smoking and tobacco status: former smoker (7 years) Alcohol intake: never Marital status: Current occupational status: retired History of recent travel: No Vitals/I&O/Wt Last Vital Signs Temp 97.2 F L 02/26/22 06:01 Pulse 57 L 02/26/22 06:01 Resp 18 02/26/22 06:01 BP 132/75 02/26/22 06:01 Pulse Ox 93 02/26/22 06:01 Physical Exam Narrative: CONSTITUTIONAL: The patient is a normal appearing [] in no apparent distress. GENERAL: Patient in no acute distress. CARDIAC: Regular rate and rhythm. CHEST: Normal inspiratory effort, normal respiratory rate. ABDOMEN: Soft and nontender. SKIN: Clear, warm and intact. NEURO?PSYCH: The patient is alert and oriented to person, place and time. Sensorv /SILT Motor StrengthShoulder abduction C5 5/5Wrist extension C6 5/5Elbow extension C7 5/5Hand Vacuum Forming Machine Operator C8 5/5Finger abduction T15/5 Radial/ Ulnar/ Median n intact LowerSensory (SILT)Motor StrengthHin flexion L2/3Ant/inner thigh 5/5Hip adduction L2/3 5/5Knee extension L4 Lat thigh, 5/5Toe dorsiflexion L5 5/5Ankle dorsiflexion L5/ U22Kfoeqqf flexion S1 5/5 DTRBleeps 2+Triceps 2+Brachioradialis 2+Patellar 2+Achilles 2+ MUSCULOSKELETAL: [] UPPEREXTREMITIES: The patient had full active ROM in fingers, wrist, elbow, and shoulder. The patient demonstrated ability to fully flex/extend/abduct/ adduct fingers, make ok sign, cross 2nd/3rd digits, extend 1st digit fully.. Radial pulse 2+, CR<2 seconds. LOWER EXTREMITIES: Pt has full, active ROM of toes, ankle, knee, and hip. Dorsalis pedis/posterior tibialis pulses 2+, CR<2 seconds. SPINE: Skin warm, dry, intact. 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 Diagnoses Lumbar stenosis with neurogenic claudication M48.062
[2022-02-26] MEDS: ceFAZolin 2,000 MG in sodium chloride 0.9% (plus) 50 ML 100 MG IV (07:03)
[2022-02-26] MEDS: HYDROcodone-acetaminophen 5-325 mg Tablet 1 TAB PO (09:44)
--- NOTE | 2022-02-26 10:02 | SUR.PHASEII ---
patient's heart rate is 40s-50s. this is normal for patient. he is not symptomatic. patients will be at home with him. she is aware of heart rate and states this has been checked my resizer operator. reported to dr oropeza and she says he is ok to be d/c home.
--- NOTE | 2022-02-26 11:06 | PM.OP ---
Operative Report Date of procedure: February 26, 2022 Pre-op diagnosis: Preop Diagnosis Lumbar stenosis w/Neurogenic Claudication Post-op diagnosis: same Procedure done: 1. L3/4 laminectomy with partial facetectomy 2. L4/5 laminectomy with partial facetectomy Surgeon: Devon [employer] Building Supervisor: Ted Fung Estimated blood loss (mL): 5 Procedure: 1. L3/4 laminectomy with partial facetectomy 2. L4/5 laminectomy with partial facetectomy Patient is brought to the operative suite. After undergoing anesthesia they are placed in the prone position. All areas of impingement are well padded. Patient is then prepped and draped in the normal sterile fashion. A skin incision is made over the L4/5 level. This is confirmed under c-arm guidance. A series of dilators are passed and the tubular retractor is docked on the L4 lamina. A bovie is used to clear the soft tissue off the lamina and the L 4/5 facet joint. A high speed devon is then used to perform the laminectomy and take down the medial aspect of the L 4/5 facet joint. A kerrison rongeure was then used to take down the remaining lamina and smooth the edge of the laminectomy up to the point where the ligamentum flavum attaches. Attention was then brought to the medial aspect of the facet joint. The remaining medial aspect of the superior and inferior aspect of the facet joint were taken down with the kerrison from the pedicle of L4 to L 5. The facet joint had significant hypertrophy. Attention was then brought to the Ligamentum Flavum. The ligament was taken down from the lamina of L4 to L5 and out medially to the remaining facet joint. The ligament was thick. The dura was then exposed. The dura was in good repair. The L4 nerve was then traced with a curette out the L4/5 foramen and found to be adequately decompressed. The L5 nerve was traced with a curette around the L5 pedicle. The lateral recess was opened with a kerrison helping to further decompress the L5 nerve. Wound is then irrigated copiously with saline and surgiflo is used to stop any bleeding. The tubular retractor is removed and A skin incision is made over the L3/4 level. This is confirmed under c-arm guidance. A series of dilators are passed and the tubular retractor is docked on the L3 lamina. A bovie is used to clear the soft tissue off the lamina and the L 3/4 facet joint. A high speed devon is then used to perform the laminectomy and take down the medial aspect of the L 3/4 facet joint. A kerrison rongeure was then used to take down the remaining lamina and smooth the edge of the laminectomy up to the point where the ligamentum flavum attaches. Attention was then brought to the medial aspect of the facet joint. The remaining medial aspect of the superior and inferior aspect of the facet joint were taken down with the kerrison from the pedicle of L3 to L 4. The facet joint had significant hypertrophy. Attention was then brought to the Ligamentum Flavum. The ligament was taken down from the lamina of L3 to L4 and out medially to the remaining facet joint. The ligament was thick. The dura was then exposed. The dura was in good repair. The L3 nerve was then traced with a curette out the L3/4 foramen and found to be adequately decompressed. The L4 nerve was traced with a curette around the L4 pedicle. The lateral recess was opened with a kerrison helping to further decompress the L4 nerve. Wound is then irrigated copiously with saline and surgiflo is used to stop any bleeding. The tubular retractor is removed and the wound is closed with vicryl and monocryl suture. Glue is then used to protect the wound. A sterile dressing is then placed. Patient was then placed in the supine position and transferred to the PACU in stable condition.
--- NOTE | 2022-02-26 12:55 | ANE.PACU2 ---
Inpatient post-anesthesia follow up: Airway intact: Yes Vital signs: Temperature 97.2 F Pulse Rate 48 Respiratory Rate 18 Blood Pressure 125/66 Pulse Oximetry 93 Oxygen Delivery Me thod Nasal Cannula Oxygen Flow Rate 1 Fraction of Inspir ed Oxygen Hydration adequate: Yes Nausea and vomiting: No Pain level: 2 Mental status: Baseline
== END 2022-02-26 10:39 | disposition home or self-care (01) ==
PROVIDERS: Anesthesiology; PCP Internal Medicine; Visit Provider Orthopaedic Surgery
PROC: (CPT 63005; principal; 2022-02-26 07:00)
DX: M48.062 Spinal stenosis, lumbar region with neurogenic claudication (principal); N40.1 Benign prostatic hyperplasia with lower urinary tract symptoms; N13.8 Other obstructive and reflux uropathy; G47.33 Obstructive sleep apnea (adult) (pediatric); Z87.891 Personal history of nicotine dependence; I44.0 Atrioventricular block, first degree
CPT/HCPCS: 63047; 63048; 36415; 72020; 76000; 80048; 85025; 86850; 86900; 93005; J1100; J2370; J2405; J2710; J3010; J3490; J7030

== ENCOUNTER → 2022-03-13 09:52 | Outpatient (BNVA) | payer MEDICARE, OTHER, SELFPAY | PROVIDERS: PCP Internal Medicine; Visit Provider Physician Assistant | DX: Z47.89 Encounter for other orthopedic aftercare (principal) | CPT/HCPCS: 99024 ==

== ENCOUNTER → 2022-04-24 09:05 | Outpatient (BNVA) | payer MEDICARE, OTHER, SELFPAY | PROVIDERS: PCP Internal Medicine; Visit Provider Physician Assistant | DX: Z47.89 Encounter for other orthopedic aftercare (principal) | CPT/HCPCS: 99024 ==

== ENCOUNTER → 2022-10-16 14:45 | Outpatient (BNVA) | payer MEDICARE, OTHER, SELFPAY | PROVIDERS: PCP Internal Medicine; Visit Provider Physician Assistant | DX: M48.062 Spinal stenosis, lumbar region with neurogenic claudication (principal); Z98.890 Other specified postprocedural states; M47.816 Spondylosis without myelopathy or radiculopathy, lumbar region | CPT/HCPCS: 72100; 99213 ==

== ENCOUNTER 2022-11-11 08:22 | Outpatient (CLI) | payer MEDICARE, OTHER, SELFPAY ==
--- NOTE | 2022-11-11 08:45 | MR_ITS ---
WS: [id number] MRI LUMBAR SPINE NONCONTRAST TECHNIQUE: Sagittal T1, T2 and STIR imaging. Axial T1 and T2 imaging. CLINICAL INFORMATION: post op pain COMPARISON: MRI April 24, 2021 FINDINGS: Mild lumbar curve. No acute compression. Disc bulging worse at L3-L4 and L4-L5. Laminectomy defects n ew from previous. Alignment appears unchanged since 2020. L1-L2: Mild annular bulging. Mild facet arthropathy. Slight narrowing of the LEFT subarticular recess . Mild facet arthropathy. Foramen are patent. L2-L3: Mild annular bulging. Mild central canal stenosis. Slight narrowing of the subarticular recess . Moderate facet arthropathy. Mild RIGHT foraminal narrowing. L3-L4: Slight retrolisthesis. Mild residual central canal stenosis with impingement subarticular rece ss bilaterally worse in the LEFT. Mild bilateral foraminal narrowing. Moderate facet arthropathy. RIG HT hemilaminectomy appears new compared to previous. L4-L5: Mild disc bulging with osteophytic ridging. Mild central canal stenosis. Impingement traversin g L5 nerve roots bilaterally worse in the RIGHT. Moderate facet arthropathy. Laminectomy defects new from previous. Spinal canal stenosis has improved. Moderate RIGHT foraminal narrowing with impingemen t on the exiting RIGHT L4 nerve root. Mild LEFT foraminal narrowing. L5-S1: Mild annular bulging. Slight effacement of ventral thecal sac. Moderate to advanced facet arth ropathy. Spinal canal and foramen are patent. Incidental sclerosis RIGHT sacrum unchanged compared to previous. Visualized pelvic bony structures: Normal. Paravertebral soft tissues: Normal. MR/MR lumbar spine wo con* [id number] IMPRESSION: 1. Laminectomy defects L3-L4 and L4-L5 are new from previous with spinal canal decompression. Mild residual central canal stenosis at these levels with narro wing of the LEFT L3-L4 subarticular recess and RIGHT L4-L5 subarticular recess. 2. Moderate RIGHT L4-L5 foraminal narrowing impinges the exiting L4 nerve root due to disc osteophyte complex. 3. Mild bilateral L3-L4 foraminal narrowing with small foraminal protrusions w orse in the LEFT. 4. Mild central canal stenosis L2-L3 is unchanged. Mild RIGHT L2-L3 foraminal narrowing.
== END 2022-11-11 08:23 | disposition home or self-care (01) ==
PROVIDERS: PCP Internal Medicine; Visit Provider Physician Assistant
DX: Z98.890 Other specified postprocedural states (principal); M51.16 Intervertebral disc disorders with radiculopathy, lumbar region; M48.061 Spinal stenosis, lumbar region without neurogenic claudication
CPT/HCPCS: 72148

== ENCOUNTER → 2022-12-11 08:21 | Outpatient (BNVA) | payer MEDICARE, OTHER, SELFPAY | PROVIDERS: PCP Internal Medicine; Visit Provider Orthopaedic Surgery | DX: M25.552 Pain in left hip (principal); Z98.890 Other specified postprocedural states | CPT/HCPCS: 73502; 99214 ==

== ENCOUNTER 2023-02-19 22:25 | Emergency (ER) | payer MEDICARE, OTHER, SELFPAY ==
[2023-02-19 22:40] VITALS: BP 119/75; PULSE 62; RESP 20; TEMP 36.4; O2SAT 94; BMI 33.0
--- NOTE | 2023-02-19 22:55 | XRR_ITS ---
PROCEDURE INFORMATION: Exam: XR Right Shoulder Exam date and time: 02/19/2023 11:07 PM Age: 67 years old Clinical indication: Injury or trauma; Fall; Crushing; Shoulder; Right TECHNIQUE: Imaging protocol: Radiologic exam of the right shoulder. Views: 2 or more views. COMPARISON: CT lung screening [id number] 10/04/2021 8:35 AM FINDINGS: Bones/joints: Mild to moderate acromioclavicular joint osteoarthritis. Soft tissues: Normal. XR/XR shoulder RT min 2V* [id number] IMPRESSION: 1. Negative for fracture or dislocation. 2. Mild to moderate acromioclavicular joint osteoarthritis.
--- NOTE | 2023-02-19 22:55 | XRR_ITS ---
PROCEDURE INFORMATION: Exam: XR Right Humerus Exam date and time: 02/19/2023 11:11 PM Age: 67 years old Clinical indication: Injury or trauma; Fall; Crushing; Arm, upper; Right TECHNIQUE: Imaging protocol: Radiologic exam of the right humerus. Views: 2 or more views. COMPARISON: CR (CHEST, ) 02/19/2023 11:07 PM FINDINGS: Bones/joints: Mild to moderate acromioclavicular joint osteoarthritis. Soft tissues: Normal. XR/[place] [id number] IMPRESSION: 1. No acute findings. 2. Mild to moderate acromioclavicular joint osteoarthritis.
--- NOTE | 2023-02-19 23:00 | ED_ITS ---
HPI - Extremity Problem General: Chief complaint: Extremity Injury, Upper Stated complaint: Right shoulder/arm injury Time Seen by Provider: 02/19/23 22:27 Source: patient Mode of arrival: ambulatory Limitations: no limitations History of Present Illness: 67-year-old male states he fell 3 days ago. He states he tripped and fell fell onto his right shoulder. He states been having right shoulder and arm pain since then he states is worse with palpation and with movement he denies hitting his head denies any neck pain states pain got much worse today states he took Tylenol and is now improved he states to 3 out of 10. Denies any other injuries Associated symptoms: Deny chest pain, fever(s) or rash Review of Systems Const: Denies: fever(s) or chills Eyes: Denies: eye discomfort ENMT: Denies: throat pain or dental pain Card: Denies: chest pain Resp: Denies: dyspnea GI: Denies: abdominal pain, nausea or vomiting Musc: Reports: extremity pain; Denies: neck pain or back pain Skin/Breast: Denies: rash Neuro: Denies: headache(s) PFSH ED PFSH: Medical History BPH loc w urin obs/LUTS Diverticulitis Obstructive sleep apnea Sinus node dysfunction Surgical History History of bilateral cataract extraction History of carpal tunnel surgery Family History Brother Heart attack Stroke Mother Liver cancer Other Cancer Dementia Lung disease Denies family history of Diabetes CAD (coronary artery disease) Hyperlipidemia Chronic kidney disease (CKD) Anesthesia complication Bleeding disorder Hypertension Social History Smoking and tobacco status: former smoker (7 years) Alcohol intake: never Substance/Drug Use: never Marital status: Current occupational status: retired Physical Exam Const: COMMON NORMALS: no acute distress and patient oriented x3 HENMT: COMMON NORMALS: normocephalic and atraumatic HEAD & SCALP: normocephalic and atraumatic Eye: COMMON NORMALS: conjunctivae normal CONJUNCTIVA: Yes conjunctivae normal Neck/C-Spine: COMMON NORMALS: supple CERVICAL SPINE: Yes cervical ROM normal, No pain with cervical ROM and No Cervical spine tenderness Chest: COMMONS NORMALS: normal inspection of the chest Resp: COMMON NORMALS: normal respiratory effort Cardio: COMMON NORMALS: regular rate and regular rhythm RATE: regular rate RHYTHM: regular rhythm GI: INSPECTION: Yes normal to inspection Extremity: NARRATIVE EXTREMITY EXAM: Tenderness to to the proximal humerus no obvious deformity has full range of motion of shoulder and elbow Neuro: COMMON NORMALS: patient oriented x3 Psych: COMMON NORMALS: mental status grossly normal Skin: COMMON NORMALS: no rashes or lesions noted GENERAL SKIN EXAM: no rashes or lesions noted Course Vital Signs: Vital signs: Vital Signs Temperature 97.6 F 02/19/23 22:40 Pulse Rate 50 L 02/19/23 23:48 Respiratory Rate 16 02/19/23 23:48 Blood Pressure 148/79 02/19/23 23:48 Pulse Oximetry 95 02/19/23 23:48 Oxygen Delivery Me thod Room Air 02/19/23 22:40 MDM - Extremity (Nontraumatic) Medical Decision Making Patient presents here with contusion to arm x-ray here shows no acute fractures he is stable for discharge he is to follow-up with PCP and return if worsening. Medical Records I reviewed the patient's medical records. Lab Data I reviewed the patient's lab results. Discharge Plan Discharge Patient Disposition: Home Clinical Impression: Contusion of arm, left, Fall Condition: Stable Prescriptions: No Action prednisone 20 mg tablet 20 mg PO DAILY Qty: 15 0RF Rx Instructions: 60mg on day 1,2,3 40mg on day 4,5 20mg on day 6,7 cyclobenzaprine 10 mg tablet 10 mg PO TID PRN (Reason: muscle spasm) Qty: 90 0RF tramadol 50 mg tablet 50 mg PO Q4H PRN (Reason: pain) Qty: 40 0RF tamsulosin [Flomax] 0.4 mg Capsule 0.4 mg PO DAILY hydrocodone-acetaminophen 5-325 mg tablet 1 - 2 tab PO .Q4-6H Qty: 40 0RF Discharge Orders: Discharge ED (Routine); Ordered 02/19/23 Ordered By: Dee Polk Referrals: Tiago Sung DO [Primary Care Provider] - Discharge Diet: Advance as tolerated Discharge Activity: Resume usual activity Patient Instructions: Contusion in Adults (ED) Coding Level of Care Code ED 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
[2023-02-19] MEDS: HYDROcodone-acetaminophen 5-325 mg Tablet 1 TAB PO (23:09)
[2023-02-19 23:48] VITALS: BP 148/79; PULSE 50; RESP 16; O2SAT 95
== END 2023-02-19 23:49 | disposition home or self-care (01) ==
PROVIDERS: Emergency Provider Emergency Medicine; PCP Internal Medicine
DX: S40.021A Contusion of right upper arm, initial encounter (principal); W01.0XXA Fall on same level from slipping, tripping and stumbling without subsequent striking against object, initial encounter
CPT/HCPCS: 73030; 73060; 99283

== ENCOUNTER 2023-06-15 05:39 | Inpatient (IN) | payer MEDICARE, OTHER, SELFPAY ==
[2023-06-15] VITALS (12 sets, daily range): BP systolic 116–151; BP diastolic 72–108; PULSE 37–55; RESP 12–21; TEMP 36.6–36.9; O2SAT 93–97; BMI 31.5
--- NOTE | 2023-06-15 05:54 | XRR_ITS ---
PROCEDURE INFORMATION: Exam: XR Chest Exam date and time: 06/15/2023 6:00 AM Age: 67 years old Clinical indication: Sternal or substernal pain; Patient HX: Substernal cp. St elevation. TECHNIQUE: Imaging protocol: Radiologic exam of the chest. Views: 1 view. COMPARISON: CT lung screening [id number] 10/04/2021 8:35 AM FINDINGS: Lungs: No focal consolidation. Pleural spaces: No large pleural effusion. No significant pneumothorax. Heart/Mediastinum: Cardiomediastinal silhouette is midline and mildly enlarged. Bones/joints: No acute osseous findings. XR/XR chest 1V portable [id number] IMPRESSION: 1. No focal consolidation. 2. Mild cardiomegaly.
--- NOTE | 2023-06-15 05:54 | ECG_ITS ---
[facility] Test Date: 2023-06-15 Pat Name: Tiago Petersen Department: Room: ICU11 Gender: Male Member Certification Manager: : 1955 Requested By: Lexx Mosley Order Number: [id number] Jamie MD: Dannie Arroyo M.D. Measurements Intervals [place] Rate: 45 P: -81 ND: 190 QRS: 39 QRSD: 111 T: 45 QT: 428 QTc: 371 Interpretive Statements SINUS BRADYCARDIA WITH OCCASIONAL SUPRAVENTRICULAR PREMATURE COMPLEXES MODERATE INTRAVENTRICULAR CONDUCTION DELAY [110+ ms QRS DURATION] MARKED ST ELEVATION, CONSIDER LATERAL INJURY [MARKED ST ELEVATION W/O NORMALLY INFLECTED T-WAVE IN I/aVL/V5/V6] ACUTE DE Compared to ECG 02/21/2022 11:01:39 Intraventricular conduction delay now present ST (T wave) deviation now present First degree AV block no longer present Incomplete right bundle-branch block no longer present Myocardial infarct finding still present Electronically Signed On 06-15-2023 9:54:04 BOOM BOSS by Dannie Arroyo M.D. [email or web address]
[2023-06-15] MEDS: clopidogrel 300 mg Tablet 600 MG PO (06:00)
[2023-06-15] MEDS: aspirin 81 mg Chew Tablet 324 MG PO (06:00)
--- NOTE | 2023-06-15 06:00 | XACV_ITS ---
Exam Room: 2 Ht: 178 cm Wt: 100 kg BSA: 2.25 m2 Gender: Male : 1955 Any Known Allergies: No known allergies Exam Priority: Routine Procedure(s): Procedure Description: Diagnostic procedure Procedure Description: PCI procedure Procedure Description: Drug Eluting Coronary Stent Procedure Description: PTCA Procedure Description: Miscellaneous Procedure Description: ACT Procedure Description: Coronary Angiography Diagnostic Cath Status: Emergency Diagnostic Findings * INDICATION: 67 year old male with no prior CAD history presented to hospital with on and off chest pain since yesterday morning. Last night it became more persistent and he presented to the hospital with that. It was associated with diaphoresis. EKG performed in the ER showed lateral wall ST elevation ME. Cardiac Safety And Security Officer activated emergently and patient taken for emergent cardiac catheterization with possible PCI. * Left Main has mild luminal irregularities. * Circumflex has no significant disease. * Right Coronary Artery is a small sized vessel with no significant disease.. * Mid Left Anterior Descending: severe 90% stenosis, EVITA: 3 flow. This is the culprit vessel for acute ME. * Coronary angiography shows left dominance. PCI Status: Emergency PCI Indication: Immediate PCI for STEMI Interventional Findings * Procedure detail: We engaged left main artery with XB 3.5 guide catheter. IV heparin was administered to maintain anticoagulation. 0.014 run-through guidewire was used to cross the stenosis and was put in distal LAD. We predilated the stenosis with 3.0 x 15 mm semicompliant balloon. This was followed by placement of 3.5 x 22 mm resolute [place] drug-eluting stent. Proximal part of the stent was postdilated with a 3.75 x 15 mm NC balloon. At this time final angiogram was performed that showed excellent stent expansion, no residual stenosis and EVITA-3 flow. Guidewire and guide catheter were removed. Initial plan was to send patient to ICU without transvenous pacemaker placement but heart rate started dropping in 20s-low 30s. We obtained access in right common femoral vein. We then advanced transvenous pacemaker under fluoroscopic guidance. It was set on demand pacing at heart rate of 50bpm. Patient left laborer yard in a stable condition. . * Mid Left Anterior Descendin% stenosis treated with a AB TREK 3.00X15 RX BALLOON, ARACELI R TAYE 3.5X22 CHARLES, and ARACELI PRINCE EUPHORA RX [id number] BALLOON. 0% residual stenosis, EVITA: 3 flow. Conclusions 1. Severe mid LAD stenosis s/p PCI with 1 stent.. 2. Intermittent sinus arrest with escape rhythm with heart rates in 20s to 30s. S/p temporary transvenous pacemaker placement. 3. Mid Left Anterior Descending was treated with a Balloon, Drug Eluting Stent, and Balloon. Recommendations * Transfer to ICU. * Dual antiplatelet therapy with aspirin and Plavix. * High intensity statin therapy. * Order echocardiogram. * We will assess need for permanent pacemaker placement based on tele monitoring. Interventional RX Recommendation: PCI w/o planned CABG Diagnostic RX Recommendation: PCI w/o planned CABG Anticoagulation: Heparin Pressures Phase:Rest AO : 140 / 68 ( 96 ) @ 7:22:00 AM 124 / 71 ( 94 ) @ 7:24:00 AM 133 / 64 ( 91 ) @ 7:30:00 AM 121 / 53 ( 85 ) @ 7:44:00 AM Clinical Evaluation EBL: 5mL-10mL Procedural Details Pre-Procedure Time Out. Identified patient by full name and date of as verbalized by the patient/guarantor. Does the consent match the physician's order: N/A Emergent; Informed Consent not obtained due to time critical life threat. Accurate & Complete Informed Consent: N/A Emergent; Informed Consent not obtained due to time critical life threat. Inpatient/Outpatient History & Physical on Chart: N/A Emergent; Informed Consent not obtained due to time critical life threat. If H&P is completed, is and addenduem needed: N/A Emergent; Informed Consent not obtained due to time critical life threat; If yes, is the addendum complete: N/A Emergent; Informed Consent not obtained due to time critical life threat. Visualize and Verify Site with Patient/Guarantor: N/A. Relevant Radiology Images available: N/A Emergent; Informed Consent not obtained due to time critical life threat. Pre-op teaching completed and patient verbalized understanding. The risks, benefits, and alternatives of sedation and/or procedure were discussed by physician. The patient agrees to continue. Procedure started. [facility] Clinical Fraility Score: 3: Managing Well. Safety And Security Officer Indications: ACS <= 24 hours. Chest Pain Symptom Assessment: Typical Angina Symptoms. Cardiovascular Instability: Yes, if yes, Persistant Ischemic Symptoms. Correct patient, site and procedure confirmed by cath team. Current diagnosis: STEMI. PERRLA. Strong, equal hand gis software engineer bilaterally. Lungs clear x 5 lobes. IV Site on Arrival: 20 gauge in the right anticubital. IV Fluids: 0.9% NaCl at KVO. 0 mL infused prior to laborer yard. Oxygen started at 2liters/min via nasal canula. right groin was prepped with chloroprep then draped in the usual sterile fashion. right radial was prepped with chloroprep then draped in the usual sterile fashion. Physician notified. Patient's family in the laborer yard waiting room. Dr. Arroyo will update at the completion of the procedure. Equipment: 6F - Radial. Cardiac Cath Pack. ACIST Manifold Kit Model BT 2000. Heparinized Saline (2 units/mL), 1000 mL bag. Baseline sample Acquired. HR: 40 BPM. Physician arrived. Physician scrubbed in. Immediate Pre-Procedure Time Out. Correct Patient: N/A Emergent; Informed Consent not obtained due to time critical life threat; Correct Procedure: N/A Emergent; Informed Consent not obtained due to time critical life threat; Correct Site: N/A Emergent; Informed Consent not obtained due to time critical life threat; Correct Patient Position: N/A Emergent; Informed Consent not obtained due to time critical life threat; Correct Supplies: N/A Emergent; Informed Consent not obtained due to time critical life threat; Dried Flammable Prep: N/A Emergent; Informed Consent not obtained due to time critical life threat; Blood Products Available: N/A Emergent; Informed Consent not obtained due to time critical life threat;. Lidocaine 1% infiltrated to the right radial. Arterial access obtained. 6 montserratian XB 3.5 guide catheter was inserted over the exchange wire. Cine of the LCA performed. Guide catheter out over the exchange wire. 6 montserratian JR 4 guide catheter was inserted over the exchange wire. Cineography of the RCA performed. Guide catheter out over the exchange wire. 6 montserratian XB 3.5 guide catheter was inserted over the exchange wire. Runthrough guidewire was advanced through the guide catheter to lesion in the mid LAD. Inflation number : 1 A AB TREK 3.00X15 RX BALLOON was prepped and advanced across the Mid LAD , then inflated to 8 GUS for 0:08 seconds. Inflation number: 2 The AB TREK 3.00X15 RX BALLOON was reinflated across the Mid LAD, to 8 GUS for 0:17 seconds. Balloon out. Inflation Number : 3 A ARACELI Duron TAYE 3.5X22 CHARLES -Lot Number# [id number] was prepped and advanced across the Mid LAD. The stent was deployed at 12 GUS for 0:19 seconds. Exp, 2023-10-22. Stent balloon out over wire. Inflation number : 4 A ARACELI PRINCE EUPHORA RX [id number] BALLOON was prepped and advanced across the Mid LAD , then inflated to 12 GUS for 0:14 seconds. Balloon out. Results checked. PCI Indication : Immediate PCI for STEMI. ACT drawn. Results out of range high. Will redraw. Guide catheter out over the exchange wire. A 5 montserratian Angled Pig catheter in over wire. Critial troponin of [address] Arroyo with no new orders. Catheter removed over the exchange wire. ACT drawn. Results 356 seconds. Therapeutic limits - pre-heparin administration 90-150 seconds and monitoring heparin during a vascular procedure >250 seconds. A TR Band was successful obtaining hemostatsis at the Right Radial artery insertion site. Dr. Arroyo scrubbed out. PERRLA. Strong, equal hand gis software engineer bilaterally. No VTE prophylaxis required. Medication's Wasted: Lidocaine 1% = 1 mL. Medication's Wasted: Nitro = 49.6 mg. Medication's Wasted: Other = Versed 1 mg. Medication's Wasted: Other = Fentanyl 50 mcg. Total IV fluids: 39 mL. Post-op diagnosis: S/P PCI of the mid LAD. Complications: none. Estimated blood loss: 5mL-10mL. Responsiveness - Normal response to verbal stimuli; alert and oriented, PERRLA. Airway - Unaffected, no intervention required; spontaneous ventilation. Circulation: W/N/L, pulses unchanged. Nausea/Vomiting: No. Post Procedure: right radial pulse 3+. Procedure completed. Patient transferred by wheelchair to ICU. Vital chart was stopped. Access Site Site: Right Radial artery Sheath Size: 6 Fr Hemostasis Method: TR Band Hemostasis Success: Successful Procedure Medications Start: 6:18 AM Stop: 6:18 AM Medication: Versed Amount: 1 mg Route: I.V. Start: 6:18 AM Stop: 6:18 AM Medication: Fentanyl Amount: 50 mcg Route: I.V. Start: 6:24 AM Stop: 6:24 AM Medication: Heparin Amount: 5000 units Route: I.V. Start: 6:28 AM Stop: 6:28 AM Medication: Nitrogylcerin Amount: 200 mcg Route: I.A. Start: 6:20 AM Stop: 6:20 AM Medication: Nitrogylcerin Amount: 200 mcg Route: I.A. Start: 6:36 AM Stop: 6:36 AM Medication: Heparin Amount: 1000 units Route: I.V. Start: 6:54 AM Stop: 6:54 AM Medication: Nitrogylcerin Amount: 10 mcg/min Route: I.VVale gonzales I, the attending physician, have reviewed and verified all procedure medications. Yes, all medications given per verbal order Report Signatures Finalized by Dannie Arroyo MD on 06/16/2023 05:22 PM
[2023-06-15] MEDS: heparin 5,000 unit/mL INJ 1 mL 4000 UNIT IVP (06:01)
[2023-06-15] MEDS: morphine 4 mg/mL SDV 1 mL 2 MG IVP (06:01)
[2023-06-15] MEDS: ondansetron 2 mg/ML SDV 2 mL 4 MG IVP (06:02)
[2023-06-15 06:18] LABS: Basophils # 0.1 10^3/uL (0.0-0.1); Basophils % 0.9 %; Eosinophils # 0.4 10^3/uL (0.0-0.8); Eosinophils % 6.5 %; Hematocrit 52.7 % (37-53); Lymphocytes # 2.1 10^3/uL (0.8-4.8); Mean Corpuscular HGB Conc 31.7 g/dL (30-55); Mean Corpuscular Volume 94.6 fl (82-101); Mean Platelet Volume 9.4 fL (7.4-10.4); Monocytes # 0.7 10^3/uL (0.2-0.9); Monocytes % 11.4 %; Nucleated Red Blood Cells % 0 %; Platelet Count 247 10^3/cmm (157-399); Red Blood Count 5.57 10^6/uL (3.85-5.65); Red Cell Distribution Width 13.2 % (12.1-15.1); White Blood Count 5.86 10^3/uL (3.29-11.43)
--- NOTE | 2023-06-15 06:19 | ED_ITS ---
HPI - Chest Pain General: Chief Complaint: Chest Pain Stated Complaint: cp Time Seen by Provider: 06/15/23 05:54 History of Present Illness: 67-year-old male gentleman with no prior history of coronary disease. He presents with chest discomfort, started yesterday evening. He evidently took a couple of Tums and it seemed improved. It came back sometime in the night. He is short of breath. He is nauseated. No vomiting. Associated symptoms: Reports dyspnea and nausea; Deny abdominal pain, fever(s), palpitations or vomiting Review of Systems Const: Denies: fever(s) ENMT: Denies: throat pain Card: Reports: chest pain; Denies: palpitations Resp: Reports: dyspnea; Denies: productive cough or non-productive cough GI: Reports: nausea; Denies: abdominal pain or vomiting PFSH ED PFSH: Medical History BPH loc w urin obs/LUTS Diverticulitis Obstructive sleep apnea Sinus node dysfunction Surgical History History of bilateral cataract extraction History of carpal tunnel surgery Family History Brother Heart attack Stroke Mother Liver cancer Other Cancer Dementia Lung disease Denies family history of Diabetes CAD (coronary artery disease) Hyperlipidemia Chronic kidney disease (CKD) Anesthesia complication Bleeding disorder Hypertension Social History Smoking and tobacco/nicotine status: former use of tobacco/nicotine (7 years) Alcohol intake: never Substance/Drug Use: never Marital status: Current occupational status: retired Physical Exam Const: GENERAL APPEARANCE: cooperative and ill appearing; not frail appearing HENMT: COMMON NORMALS: normocephalic, atraumatic and Normal external nose present HEAD & SCALP: normocephalic and atraumatic FACE & SINUS: normal facial exam and face symmetric NOSE: Normal external nose present Eye: COMMON NORMALS: Equal, round and reactive pupils present and EOMs intact bilaterally PUPIL: Yes Equal, round and reactive pupils present Neck/C-Spine: GENERAL: Yes trachea midline Chest: CHEST: Yes Symmetrical chest wall rise Resp: COMMON NORMALS: normal respiratory effort, No retractions, No use of accessory muscles and clear to auscultation bilaterally AUSCULTATION: clear to auscultation bilaterally Cardio: RATE: bradycardic RHYTHM: abnormal rhythm irregularly irregular GI: COMMON NORMALS: Normal to inspection, nondistended, normoactive bowel sounds present Extremity: COMMON NORMALS: no pedal edema Neuro: SOPHIE COMA SCALE: document GCS findings Sophie coma scale eye opening: Spontaneous [place] coma scale verbal response: Orientated [place] coma scale motor response: Obey commands Sophie coma scale total score: 15 SENSORY EXAM: Yes extremities (intact) Psych: COMMON NORMALS: speech normal SPEECH: Yes normal speech Skin: COMMON NORMALS: no rashes or lesions noted GENERAL SKIN EXAM: no rashes or lesions noted Course Vital Signs: Vital signs: Vital Signs Temperature 97.8 F 06/15/23 05:43 Pulse Rate 37 L 06/15/23 05:43 Respiratory Rate 18 06/15/23 06:01 Blood Pressure 145/96 06/15/23 05:43 Pulse Oximetry 96 06/15/23 05:43 Oxygen Delivery Me thod Room Air 06/15/23 05:43 MDM - Chest Pain Medical Decision Making I wish on the EKG initially, before seeing the patient. Shows a wandering atrial pacemaker, irregular rhythm, and ST elevation in lead I, aVL, reciprocal changes in 2 and aVF and some lateral ST deviation as well. It was shown to cardiology, and agree that STEMI activation was appropriate. Medication was given in the ER including 4000 units heparin, 600 mg Plavix, 324 mg aspirin, 2 mg morphine and 4 of Zofran. The patient was taken to Structural Steel Fitter by the cardiac Structural Steel Fitter team for emergent angiogram. Lab Data 06/15/23 05:55 06/15/23 05:55 Laboratory Results WBC 5.86 10^3/uL (3.29-11.43) 06/15/23 05:55 RBC 5.57 10^6/uL (3.85-5.65) 06/15/23 05:55 Hgb 16.70 g/dL (11.27-16.99) 06/15/23 05:55 Hct 52.7 % (37-53) 06/15/23 05:55 MCV 94.6 fl (82-101) 06/15/23 05:55 MCH 30.0 pg (27-33) 06/15/23 05:55 MCHC 31.7 g/dL (30-55) 06/15/23 05:55 RDW 13.2 % (12.1-15.1) 06/15/23 05:55 Plt Count 247 10^3/cmm (157-399) 06/15/23 05:55 MPV 9.4 fL (7.4-10.4) 06/15/23 05:55 Neut % (Auto) 46.0 % 06/15/23 05:55 Lymph % (Auto) 35.0 % 06/15/23 05:55 [place] % (Auto) 11.4 % 06/15/23 05:55 Eos % (Auto) 6.5 % 06/15/23 05:55 Baso % (Auto) 0.9 % 06/15/23 05:55 Neut # (Auto) 2.70 10^3/uL (1.8-7.7) 06/15/23 05:55 Lymph # (Auto) 2.1 10^3/uL (0.8-4.8) 06/15/23 05:55 [place] # (Auto) 0.7 10^3/uL (0.2-0.9) 06/15/23 05:55 Eos # (Auto) 0.4 10^3/uL (0.0-0.8) 06/15/23 05:55 Baso # (Auto) 0.1 10^3/uL (0.0-0.1) 06/15/23 05:55 Nucleated RBC % (auto) 0 % 06/15/23 05:55 Nucleated RBCs # 0.0 /100WBC 06/15/23 05:55 XR interpretation done by ED provider, pending radiology final review Critical Care Time Critical Care Time: Critical Care Time: Yes Total Critical Care Time: 35 Attestation: This case had a high probability of a clinically significant, sudden, or life threatening deterioration of this patient's condition which required my full and direct attention, intervention and personal management. Time excludes any procedures performed on the patient. Discharge Plan Discharge Patient Disposition: Admitted As Inpatient Clinical Impression: ST elevation myocardial infarction (STEMI) Condition: Critical Coding Level of Care Code ED Home Security Professional for Domonique Eubanks
[2023-06-15 06:34] LABS: INR 0.94 (0.8-1.2)
[2023-06-15 06:35] LABS: Partial Thromboplastin Time 30.4 SECONDS (23.9-36.7)
[2023-06-15 06:48] LABS: Troponin(5th) Baseline 252 ng/L (0-15)
[2023-06-15 07:05] LABS: Alanine Aminotransferase 23 U/L (0-41); Albumin Level 4.4 g/dL (3.5-5.2); Alkaline Phosphatase 106 U/L (40-130); Anion Gap 16.3 (5-19); Aspartate Amino Transferase 27 U/L (0-40); Blood Urea Nitrogen 18 mg/dL (8-23); Calcium 11.2 mg/dL (8.5-10.5); Carbon Dioxide 26 mmol/L (22-29); Chloride 105 mmol/L (98-107); Globulin 2.6 g/dL (1.3-4.6); Glomerular Filtration Rate 66.6 mL/min (90-130); Glucose 122 mg/dL (65-115); Osmolality Calculated 299 mOsm/kg (285-295); Potassium 4.3 mmol/L (3.5-5.1); Sodium 143 mmol/L (136-145); Total Bilirubin 0.4 mg/dL (0.15-1.2)
[2023-06-15 07:07] LABS: NT Pro B Type Natriuretic Pept 433 pg/mL (0-125)
--- NOTE | 2023-06-15 07:30 | P.HP_ITS ---
Providers/Chief Complaint Admitting Physician: Dannie Arroyo MD/ Interventional cardiology Primary Care Provider: Tiago Sung DO Chief Complaint: Chest pain History of Present Illness Tiago Petersen is a 67 year old male with no prior CAD history presented to hospital with on and off chest pain since yesterday morning. Last night it became more persistent and he presented to the hospital with that. It was associated with diaphoresis. EKG performed in the ER showed lateral wall ST elevation [place]. Cardiac Silk Top Hat Body Maker activated emergently and patient taken for emergent cardiac catheterization with possible PCI. Review of Systems Const: Denies: fever(s) ENMT: Denies: throat pain Card: Reports: chest pain; Denies: palpitations Resp: Reports: dyspnea; Denies: productive cough or non-productive cough GI: Reports: nausea; Denies: abdominal pain or vomiting Medications/Allergies Home Medications Medication Instructions Recorded Confirmed Last Taken Type tamsulosin 0.4 mg capsule (Flomax) 0.4 mg PO DAILY 02/21/22 06/15/23 02/25/22 History cyclobenzaprine 10 mg tablet 10 mg PO TID PRN muscle spasm #90 03/10/23 06/15/23 Unknown Rx tabs Allergies Allergy/AdvReac Type Severity Reaction Status Date / Time No Known Allergies Allergy Verified 12/11/22 08:44 PFSH Acute PFSH: Medical History BPH loc w urin obs/LUTS Diverticulitis Obstructive sleep apnea Sinus node dysfunction Surgical History History of bilateral cataract extraction History of carpal tunnel surgery Family History Brother Heart attack Stroke Mother Liver cancer Other Cancer Dementia Lung disease Denies family history of Diabetes CAD (coronary artery disease) Hyperlipidemia Chronic kidney disease (CKD) Anesthesia complication Bleeding disorder Hypertension Social History Smoking and tobacco/nicotine status: former use of tobacco/nicotine (7 years) Alcohol intake: never Substance/Drug Use: never Marital status: Current occupational status: retired Vitals/I&O/Wt Last Vital Signs Temp 97.8 F 06/15/23 05:43 Pulse 40 L 06/15/23 05:54 Resp 18 06/15/23 06:01 BP 145/96 06/15/23 05:54 Pulse Ox 96 06/15/23 05:54 O2 Del Method Room Air 06/15/23 05:54 Weight last 48 hrs Weight 220 lb Physical Exam Narrative: GENERAL: Patient is alert, awake and oriented x3. [] NECK: No jugular vein distension. [] HEENT: No cyanosis. No icterus. No pallor. [] HEART: Regular S1 and S2. No murmur, rub or gallop. [] LUNGS: Clear to auscultate bilaterally. [] CENTRAL NERVOUS SYSTEM: Grossly nonfocal. [] EXTREMITIES: Lower extremities with 1+ edema bilaterally. Data 06/15/23 05:55 06/15/23 05:55 A&P Assessment and plan (1) ST elevation myocardial infarction (STEMI): Plan Patient has presented with ST elevation VT and will be emergently taken to cardiac Silk Top Hat Body Maker. He has been loaded with aspirin, Plavix and heparin bolus given. We will obtain echocardiogram. He is significantly bradycardic with sinus bradycardia and intermittent sinus pauses. may need temporary pacemaker placement. Will be transferred to ICU post procedure Attestations Medical Necessity Statement*: Care expected to cross 2 midnights. Patient has presented with ST elevation [place] and going for emergent coronary angiogram with possible PCI. Coding Level of Care Code Acute Code for [facility] Fwd Diagnoses ST elevation myocardial infarction (STEMI) I21.3
--- NOTE | 2023-06-15 08:00 | USCV_ITS ---
Tiago Petersen Age: 67 Gender: M : 1955 Exam Date: 06/15/2023 09:42 Ordering Phys: Dannie Arroyo M.D ([email or web address]) Technologist: Konrad Cowan [place] [facility] [place]ication: Post [place] BP: 150 / 93 HR: 50 Rhythm: Sinus Technical Quality: Adequate MEASUREMENTS (Male / Female) Normal Values 2D ECHO LV Diastolic Diameter PLAX 4.6 cm 4.2 - 5.9 / 3.9 - 5.3 cm LV Systolic Diameter PLAX 2.7 cm IVS Diastolic Thickness 1.2 cm 0.6 - 1.0 / 0.6 - 0.9 cm IVS Systolic Thickness 1.9 cm LVPW Diastolic Thickness 1.2 cm 0.6 - 1.0 / 0.6 - 0.9 cm LVPW Systolic Thickness 1.5 cm LVOT Diameter 2.1 cm LV Ejection Fraction 2D Teich 71.5 % LV Ejection Fraction MOD 2C 35.6 % LV Ejection Fraction 2C AL 33.6 % LA Diameter 4.5 cm M-MODE Aortic Annulus Diameter 4.1 cm LA Ao Ratio MM 0.9 MV E Point Septal Separation 0.9 cm DOPPLER AV Peak Velocity 162.0 cm/s LVOT Peak Velocity 48.7 cm/s AV Area Cont Eq vti 1.1 cm squared AV Area Cont Eq pk 1.0 cm squared MV Area PHT 4.1 cm squared Mitral E to A Ratio 1.4 MV E' Velocity 34.0 cm/s Mitral E to MV E' Ratio 12.2 Mitral E to LV E' Lateral Ratio 13.5 Mitral E to LV E' Septal Ratio 11.1 TR Peak Velocity 121.0 cm/s TR Peak Gradient 5.9 mmHg TV Peak E Velocity 76.0 cm/s Right Atrial Pressure 3.0 mmHg Pulmonary Artery Systolic Pressu 8.9 mmHg FINDINGS Left Ventricle Left ventricle is normal in size. LV systolic function is moderate to severely reduced with EF of 30-35%, Apical wall is severely hypokinetic to akinetic. Right Ventricle Grossly normal Right Atrium Not well visualized Left Atrium Normal in size Mitral Valve Grossly normal Aortic Valve Grossly normal Tricuspid Valve Not well visualized Pulmonic Valve Not well visualized Pericardium Normal Aorta Normal in size IVC Not well visualized CONCLUSIONS Technically limited quality echocardiogram because of poor ultrasonic windows LV systolic fucntion is moderate to severely reduced with EF of 30-35%. Apical wall is severely hypokinetic to akinetic. Compared to prior echocardiogram from 2019, LV systolic function has decreased significantly and EF is moderate to severely reduced (dropped from 70% to 30-35% now) Dannie Arroyo MD (Electronically Signed) Final Date: 15 June 2023 12:36 S
[2023-06-15 08:52] LABS: Troponin 5 2HR 210.3 ng/L (0-15)
--- NOTE | 2023-06-15 09:13 | ECG_ITS ---
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 Measurements Intervals [place] Rate: 50 P: 0 [place]: 0 QRS: -74 QRSD: 187 T: 87 QT: 519 QTc: 476 Interpretive Statements ELECTRONIC VENTRICULAR PACEMAKER Compared to ECG 06/15/2023 05:41:46 Sinus bradycardia no longer present Intraventricular conduction delay no longer present ST (T wave) deviation no longer present Myocardial infarct finding no longer present Electronically Signed On 06-15-2023 9:55:20 TUBE MOLDER FIBERGLASS by Dannie Arroyo M.D. [id number]
--- NOTE | 2023-06-15 09:36 | XRR_ITS ---
PROCEDURE INFORMATION: Exam: XR Chest Exam date and time: 06/15/2023 9:57 AM Age: 67 years old Clinical indication: Shortness of breath; Additional info: Post mi TECHNIQUE: Imaging protocol: Radiologic exam of the chest. Views: 1 view. COMPARISON: CR XR chest 1V portable [id number] 06/15/2023 6:00 AM FINDINGS: Lungs: No focal consolidation. Pleural spaces: No large pleural effusion. No significant pneumothorax. Heart/Mediastinum: Cardiomediastinal silhouette is midline and mildly enlarged, stable. Bones/joints: Osseous structures are unchanged. XR/XR chest 1V portable [id number] IMPRESSION: 1. No focal consolidation. 2. Mild cardiomegaly, stable.
--- NOTE | 2023-06-15 09:43 | PM.PROC ---
Procedure Note: Date of procedure: 06/15/23 Pre-procedure diagnosis: Sinus pauses/ bradycardia Post-procedure diagnosis: other (S/p transvenous temporary pacemaker) Procedure: Transvenous temporary pacemaker: After PCI of LAD, plan was to send patient to ICU however heart rate was dropping into the 20s to 30s. He had intermittent sinus arrest with escape rhythm. We decided to proceed with placement of transvenous temporary pacemaker. We obtained access in right common femoral vein with ultrasonic guidance. Under flouroscopic guidance, we placed the transvenous pacemaker. Capture was confirmed. It was put on demand pacing with sensitivity of 2mV and outpt of 3mA. Heart rate was set at 50bpm. Patient was transferred to ICU in a stable condition. Op report anesthesia: Local Performing Provider: Dannie Arroyo Complications: None Condition: stable Disposition: ICU Coding Level of Care Code Acute Code for Domonique Fwfreeman
[2023-06-15] MEDS: perflutren protein-a microsphr 0.22 mg/mL SDV 3 mL IV (10:18)
[2023-06-15] MEDS: nitroglycerin drip 50 MG/250 ML PREMIX IV (11:00)
[2023-06-15 12:06] LABS: Troponin 5 6HR 293.7 ng/L (0-15); Troponin 5 6HR Delta 41.7 ng/L (0-12)
[2023-06-15] MEDS: clopidogrel 75 mg Tablet PO (12:17)
[2023-06-15] MEDS: aspirin 81 mg EC Tablet PO (12:17)
[2023-06-15] MEDS: tamsulosin 0.4 mg Capsule PO (12:17)
--- NOTE | 2023-06-15 12:28 | ECG_ITS ---
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 Measurements Intervals [place] Rate: 50 P: 0 NM: 0 QRS: -76 QRSD: 190 T: 93 QT: 519 QTc: 476 Interpretive Statements ELECTRONIC VENTRICULAR PACEMAKER ABNORMAL RHYTHM ECG Compared to ECG 06/15/2023 09:13:31 No significant changes Electronically Signed On 06-15-2023 12:56:36 RUBBER TIRE CURER by Carmen Lopez M.D. [email or web address]/[id number]
[2023-06-15] MEDS: FUROsemide 10 mg/mL SDV 4mL 40 MG IVP (14:05)
[2023-06-15] MEDS: atorvastatin 40 mg Tablet 80 MG PO (20:22)
[2023-06-16 00:43] VITALS: BP 109/50; PULSE 57; RESP 18; TEMP 36.6; O2SAT 95
[2023-06-16 03:28] LABS: Basophils % 0.2 %; Eosinophils % 0.4 %; Hematocrit 51.6 % (37-53); Lymphocytes # 1.3 10^3/uL (0.8-4.8); Lymphocytes % 13.1 %; Mean Corpuscular HGB Conc 32.2 g/dL (30-55); Mean Corpuscular Hemoglobin 30.1 pg (27-33); Mean Corpuscular Volume 93.6 fl (82-101); Mean Platelet Volume 9.5 fL (7.4-10.4); Monocytes # 1.1 10^3/uL (0.2-0.9); Monocytes % 10.4 %; Neutrophils # 7.75 10^3/uL (1.8-7.7); Neutrophils % 75.5 %; Nucleated Red Blood Cells % 0 %; Platelet Count 236 10^3/cmm (157-399); Red Blood Count 5.51 10^6/uL (3.85-5.65); Red Cell Distribution Width 13.1 % (12.1-15.1); White Blood Count 10.26 10^3/uL (3.29-11.43)
[2023-06-16 03:47] LABS: Blood Urea Nitrogen 18 mg/dL (8-23); Calcium 9.9 mg/dL (8.5-10.5); Carbon Dioxide 23 mmol/L (22-29); Chloride 102 mmol/L (98-107); Glomerular Filtration Rate 60.2 mL/min (90-130); Glucose 143 mg/dL (65-115); Osmolality Calculated 288 mOsm/kg (285-295); Sodium 137 mmol/L (136-145)
[2023-06-16 03:52] LABS: Anion Gap 16.3 (5-19); Potassium 4.3 mmol/L (3.5-5.1)
[2023-06-16 04:33] VITALS: BP 116/66; PULSE 68; RESP 14; TEMP 36.8; O2SAT 90
[2023-06-16 06:00] VITALS: PULSE 52
[2023-06-16] MEDS: acetaminophen 325 mg Tablet 650 MG PO (06:33)
[2023-06-16] MEDS: tamsulosin 0.4 mg Capsule PO (08:02)
[2023-06-16] MEDS: clopidogrel 75 mg Tablet PO (08:02)
[2023-06-16] MEDS: aspirin 81 mg EC Tablet PO (08:02)
--- NOTE | 2023-06-16 10:48 | PM.PN ---
Subjective Subjective: Patient was found to have severe mid LAD stenosis status post PCI with 1 stent. Echocardiogram showed severely reduced LV systolic function with EF of 30-35% and regional wall motion abnormalities in the LAD territory. Patient had significant bradycardia at presentation with sinus arrest episodes. Temporary transvenous pacemaker was placed. Today has normal sinus rhythm with no use of pacemaker. Post procedure, he had on and off chest discomfort and was started on nitro gtt. EKG changes have resolved. Today chest pain has resolved. overall feeling well. Troponin at 2 hours had trended down compared to baseline. Vitals/I&O/Wt Last Vital Signs Temp 98.2 F 06/16/23 04:33 Pulse 52 L 06/16/23 06:00 Resp 14 06/16/23 04:33 BP 116/66 06/16/23 04:33 Pulse Ox 90 06/16/23 04:33 O2 Del Method CPAP 06/16/23 04:33 O2 Flow Rate 2 06/15/23 10:37 FiO2 21 06/15/23 20:17 06/15/23 06/16/23 06/16/23 22:59 06:59 14:59 Intake Total 273.2 / 1073.2 450 / 1523.2 Output Total 1000 / 1000 150 / 1150 Balance -726.8 / 73.2 300 / 373.2 Weight last 48 hrs Weight 220 lb Physical Exam Narrative: GENERAL: Patient is alert, awake and oriented x3. [] NECK: No jugular vein distension. [] HEENT: No cyanosis. No icterus. No pallor. [] HEART: Regular S1 and S2. No murmur, rub or gallop. [] LUNGS: Clear to auscultate bilaterally. [] CENTRAL NERVOUS SYSTEM: Grossly nonfocal. [] EXTREMITIES: Lower extremities with 1+ edema bilaterally. Data 06/16/23 03:13 06/16/23 03:13 A&P Assessment and plan (1) ST elevation myocardial infarction (STEMI): (2) Sinus arrest: (3) Obstructive sleep apnea: Plan Patient has presented with ST elevation [place] And was taken emergently to cardiac Culinary Assistant. He underwent successful revascularization of mid LAD with 1 stent. He had intermittent sinus arrest with significant bradycardia at presentation. Temporary transvenous pacemaker was placed. Today his rhythm has normalized and he is in sinus rhythm with heart rate in 70s to 80s. We will remove transvenous pacemaker. Continue tele monitoring Continue aspirin, plavix and atorvastatin. Continue losartan. Hold rate limiting medications at this time. We will order lifevest and event monitor If patient stays stable, plan for discharge home tomorrow. Attestations Medical Necessity Statement*: Care expected to cross 2 midnights. Patient had presented with ST elevation [place]. He underwent successful revascularization of the mid LAD with 1 stent. Coding Level of Care Code Acute Code for [facility] Diagnoses ST elevation myocardial infarction (STEMI) I21.3 Sinus arrest I45.5 Obstructive sleep apnea G47.33
[2023-06-16 14:00] VITALS: PULSE 89
[2023-06-16] MEDS: atorvastatin 40 mg Tablet 80 MG PO (20:17)
[2023-06-16 22:00] VITALS: PULSE 77
[2023-06-17] VITALS (8 sets, daily range): BP systolic 93–102; BP diastolic 53–61; PULSE 58–82; RESP 18–21; TEMP 36.8–37; O2SAT 89–91
[2023-06-17 04:46] LABS: Basophils # 0.1 10^3/uL (0.0-0.1); Basophils % 0.6 %; Eosinophils # 0.1 10^3/uL (0.0-0.8); Eosinophils % 0.6 %; Hematocrit 50.5 % (37-53); Lymphocytes # 1.8 10^3/uL (0.8-4.8); Mean Corpuscular HGB Conc 32.9 g/dL (30-55); Mean Corpuscular Volume 91.3 fl (82-101); Mean Platelet Volume 9.7 fL (7.4-10.4); Monocytes # 1.6 10^3/uL (0.2-0.9); Monocytes % 14.6 %; Neutrophils # 7.22 10^3/uL (1.8-7.7); Neutrophils % 66.8 %; Nucleated Red Blood Cells % 0 %; Platelet Count 214 10^3/cmm (157-399); Red Blood Count 5.53 10^6/uL (3.85-5.65); Red Cell Distribution Width 13.2 % (12.1-15.1); White Blood Count 10.78 10^3/uL (3.29-11.43)
[2023-06-17 05:11] LABS: Anion Gap 12.9 (5-19); Blood Urea Nitrogen 20 mg/dL (8-23); Calcium 9.1 mg/dL (8.5-10.5); Carbon Dioxide 26 mmol/L (22-29); Chloride 102 mmol/L (98-107); Glomerular Filtration Rate 66.6 mL/min (90-130); Glucose 104 mg/dL (65-115); Osmolality Calculated 287 mOsm/kg (285-295); Potassium 3.9 mmol/L (3.5-5.1); Sodium 137 mmol/L (136-145)
[2023-06-17] MEDS: losartan 50 mg Tablet 25 MG PO (09:14)
[2023-06-17] MEDS: tamsulosin 0.4 mg Capsule PO (09:14)
[2023-06-17] MEDS: clopidogrel 75 mg Tablet PO (09:14)
[2023-06-17] MEDS: aspirin 81 mg EC Tablet PO (09:15)
--- NOTE | 2023-06-17 14:12 | P.DS_ITS ---
Discharge Providers Date of Admission: 06/15/23 08:33 Date of Discharge: June 17, 2023 Attending Provider at Admission: Dannie Arroyo M.D Attending Provider at Discharge: Dannie Arroyo M.D Primary Care Provider: Tiago Sung DO Diagnoses at Discharge Discharge Diagnosis (1) ST elevation myocardial infarction (STEMI): Status: Inactive (2) Sinus arrest: Status: Resolved (3) Obstructive sleep apnea: Status: Inactive Reason for Visit Reason for Visit: Chest pain Brief History: 67 year old male with no prior CAD history presented to hospital with on and off chest pain since yesterday morning.? Last night it became more persistent and he presented to the hospital with that.? It was associated with diaphoresis.? EKG performed in the ER showed lateral wall ST elevation RI.? Cardiac Filler Sifter Helper activated emergently and patient taken for emergent cardiac catheterization with possible PCI. Hospital Course Hospital Course Cardiac catheterization showed severe mid LAD stenosis. He underwent successful revascularization with 1 stent. He also had intermittent sinus arrest with heart rates in the late 20s to early 30s. We put in a temporary pacemaker. EKG changes resolved. Overnight his heart rate improved and he went back in normal sinus rhythm. Pacemaker was removed next day. Echo showed severely reduced LV systolic function with severe apical hypokinesis to akinesis. EF was 25 to 30%. Other differential for patient's presentation was myocarditis however chest pain resolved with PCI.Patient was discharged home in a stable condition. LifeVest was placed. He also had event monitor to assess his rhythm and need for permanent pacemaker/ Defibrillator later. Physical Exam Narrative: GENERAL: Patient is alert, awake and oriented x3. [] NECK: No jugular vein distension. [] HEENT: No cyanosis. No icterus. No pallor. [] HEART: Regular S1 and S2. No murmur, rub or gallop. [] LUNGS: Clear to auscultate bilaterally. [] CENTRAL NERVOUS SYSTEM: Grossly nonfocal. [] EXTREMITIES: Lower extremities with 1+ edema bilaterally. Discharge Data Studies Completed and Pending Completed Studies During Hospitalization Category Date Time Status LEAD PHARMACY TECHNICIAN request for service Routine Exams 06/15/23 06:00 Completed LEAD PHARMACY TECHNICIAN request for service Routine Exams 06/15/23 07:00 Completed XR chest 1V portable [id number] Routine Exams 06/15/23 09:36 Completed XR chest 1V portable [id number] Stat Exams 06/15/23 05:54 Completed CV. echo wo/w contrast [id number] Urgent Ultrasound 06/15/23 08:00 Completed Pending at discharge Category Date Time Status Basic Metabolic Panel AM LABS Lab 06/18/23 04:00 Ordered Complete Blood Count w/Auto AM LABS Lab 06/18/23 04:00 Ordered Radiology Impressions Chest X-Ray 06/15/23 09:36 IMPRESSION: 1. No focal consolidation. 2. Mild cardiomegaly, stable. Laboratory Results WBC 10.78 10^3/uL (3.29-11.43) 06/17/23 03:40 RBC 5.53 10^6/uL (3.85-5.65) 06/17/23 03:40 Hgb 16.60 g/dL (11.27-16.99) 06/17/23 03:40 Hct 50.5 % (37-53) 06/17/23 03:40 MCV 91.3 fl (82-101) 06/17/23 03:40 MCH 30.0 pg (27-33) 06/17/23 03:40 MCHC 32.9 g/dL (30-55) 06/17/23 03:40 RDW 13.2 % (12.1-15.1) 06/17/23 03:40 Plt Count 214 10^3/cmm (157-399) 06/17/23 03:40 MPV 9.7 fL (7.4-10.4) 06/17/23 03:40 Neut % (Auto) 66.8 % 06/17/23 03:40 Lymph % (Auto) 17.0 % 06/17/23 03:40 [place] % (Auto) 14.6 % 06/17/23 03:40 Eos % (Auto) 0.6 % 06/17/23 03:40 Baso % (Auto) 0.6 % 06/17/23 03:40 Neut # (Auto) 7.22 10^3/uL (1.8-7.7) 06/17/23 03:40 Lymph # (Auto) 1.8 10^3/uL (0.8-4.8) 06/17/23 03:40 [place] # (Auto) 1.6 10^3/uL (0.2-0.9) H 06/17/23 03:40 Eos # (Auto) 0.1 10^3/uL (0.0-0.8) 06/17/23 03:40 Baso # (Auto) 0.1 10^3/uL (0.0-0.1) 06/17/23 03:40 Nucleated RBC % (auto) 0 % 06/17/23 03:40 Nucleated RBCs # 0.0 /100WBC 06/17/23 03:40 PT 12.80 SECONDS (12.1-14.9) 06/15/23 05:55 INR 0.94 (0.8-1.2) 06/15/23 05:55 APTT 30.4 SECONDS (23.9-36.7) 06/15/23 05:55 Sodium 137 mmol/L (136-145) 06/17/23 03:40 Potassium 3.9 mmol/L (3.5-5.1) 06/17/23 03:40 Chloride 102 mmol/L (98-107) 06/17/23 03:40 Carbon Dioxide 26 mmol/L (22-29) 06/17/23 03:40 Anion Gap 12.9 (5-19) 06/17/23 03:40 BUN 20 mg/dL (8-23) 06/17/23 03:40 Creatinine 1.1 mg/dL (0.7-1.2) 06/17/23 03:40 GFR Calculation 66.6 mL/min (90-130) L 06/17/23 03:40 Glucose 104 mg/dL (65-115) 06/17/23 03:40 Calculated Osmolality 287 mOsm/kg (285-295) 06/17/23 03:40 Calcium 9.1 mg/dL (8.5-10.5) 06/17/23 03:40 Total Bilirubin 0.4 mg/dL (0.15-1.2) 06/15/23 05:55 AST 27 U/L (0-40) 06/15/23 05:55 ALT 23 U/L (0-41) 06/15/23 05:55 Alkaline Phosphatase 106 U/L (40-130) 06/15/23 05:55 Troponin T Baseline 252 ng/L (0-15) H* 06/15/23 05:55 Troponin T 120 Minute 210.3 ng/L (0-15) H 06/15/23 08:02 Delta Troponin T -41.7 ABS# (0-10) L 06/15/23 08:02 Troponin T Hi Sens 6Hr 293.7 ng/L (0-15) H 06/15/23 11:13 Troponin T Hi Sens 6Hr Delta 41.7 ng/L (0-12) H* 06/15/23 11:13 NT-Pro-B Natriuret Pep 433 pg/mL (0-125) H 06/15/23 05:55 Total Protein 7.0 g/dL (6.6-8.7) 06/15/23 05:55 Albumin 4.4 g/dL (3.5-5.2) 06/15/23 05:55 Globulin 2.6 g/dL (1.3-4.6) 06/15/23 05:55 Vitals Last Vital Signs Temp 98.6 F 06/17/23 08:11 Pulse 59 L 06/17/23 11:08 Resp 18 06/17/23 11:08 BP 99/53 06/17/23 11:08 Pulse Ox 91 06/17/23 11:08 O2 Del Method Room Air 06/17/23 11:08 O2 Flow Rate 2 06/15/23 10:37 FiO2 21 06/15/23 20:17 Discharge Plan Discharge Patient Disposition: Home Condition: Critical Prescriptions: New aspirin 81 mg Tablet,Delayed Release (Dr/Ec) 81 mg PO DAILY Qty: 90 3RF losartan 50 mg Tablet 25 mg PO DAILY Qty: 90 3RF atorvastatin 40 mg Tablet 80 mg PO BEDTIME Qty: 90 3RF clopidogrel 75 mg Tablet 75 mg PO DAILY Qty: 90 3RF Continued cyclobenzaprine 10 mg tablet 10 mg PO TID PRN (Reason: muscle spasm) Qty: 90 0RF tamsulosin [Flomax] 0.4 mg Capsule 0.4 mg PO DAILY Discharge Orders: Discharge Order (Routine); Ordered 06/17/23 Ordered By: Dannie Arroyo Referrals: Gwen Zee FNP [Nurse Practitioner] - 06/24/23 1:00 pm Discharge Diet: Cardiac Discharge Activity: Increase activity as tolerated Patient Instructions: Aspirin (By mouth), Losartan (By mouth) (Cozaar), Atorvastatin (By mouth), Clopidogrel (By mouth) (Plavix), Heart Attack (DC), Coronary Angioplasty (DC), Dilated Cardiomyopathy (DC), Coronary Intravascular Stent Placement (DC), Chest Pain Stoplight, Opioid Safety, Post Heart Attack Stoplight Discharge Attestations Time Spent in Discharge Care*: greater than 30 min Quality Metrics Clinical Quality Measures [ No reported AMI, CVA or VTE this stay] Coding Level of Care Code Acute Code for [facility] Fwd Diagnoses ST elevation myocardial infarction (STEMI) I21.3 Sinus arrest I45.5 Obstructive sleep apnea G47.33
== END 2023-06-17 15:30 | disposition home or self-care (01) | DRG 322 ==
LOC: ER 05:54 → CCL 05:54 → ICU 08:35
PROVIDERS: Admitting Provider Internal Medicine; Emergency Provider Emergency Medicine; PCP Internal Medicine; Visit Provider Internal Medicine
PROC: 027034Z Dilation of Coronary Artery, One Artery with Drug-eluting Intraluminal Device, Percutaneous Approach (ICD-10-PCS; principal; 2023-06-15 06:00)
PROC: 027034Z Dilation of Coronary Artery, One Artery with Drug-eluting Intraluminal Device, Percutaneous Approach (ICD-10-PCS; 2023-06-15 06:00)
DX: I21.02 ST elevation (STEMI) myocardial infarction involving left anterior descending coronary artery (principal); I50.20 Unspecified systolic (congestive) heart failure; I25.10 Atherosclerotic heart disease of native coronary artery without angina pectoris; I45.5 Other specified heart block; R00.1 Bradycardia, unspecified; N40.1 Benign prostatic hyperplasia with lower urinary tract symptoms; G47.33 Obstructive sleep apnea (adult) (pediatric); Z87.891 Personal history of nicotine dependence
CPT/HCPCS: 33210; 36415; 71045; 80048; 80053; 83880; 84484; 85025; 85347; 85610; 85730; 93005; 93458; 96361; 96365; 96374; 96375; 96376; 99152; 99153; 99285; C1725; C1769; C1779; C1874; C1887; C1894; C8929; C9600; J1644; J1940; J2250; J2270; J2405; J3010; J3490; J7030; Q9956; Q9967